=== PATIENT | male | born 1975 | race Caucasian/White ===

== ENCOUNTER 2019-02-16 06:03 | Emergency (ER) | payer MEDICAID ==
[~2019-02-16] VITALS: Ht 177.8 cm; Wt 133.8 kg
[~2019-02-16 06:03] MED LIST: ALPR1TAB2; NOR10T
[2019-02-16 06:25] VITALS: BP 175/93
[2019-02-16] MEDS ORDERED: cefTRIAXone SOD 1,000 MG VL IM ONE ×2 (07:15)
== END 2019-02-16 07:46 | disposition home or self-care (01) ==
LOC: ER 06:03
DX: S60.561A Insect bite (nonvenomous) of right hand, initial encounter (principal); I10 Essential (primary) hypertension; Z88.8 Allergy status to other drugs, medicaments and biological substances; W57.XXXA Bitten or stung by nonvenomous insect and other nonvenomous arthropods, initial encounter; Y93.89 Activity, other specified; Y92.89 Other specified places as the place of occurrence of the external cause; Y99.8 Other external cause status
CPT/HCPCS: 82962; 96372; 99283; J0696

== ENCOUNTER 2019-02-19 07:03 | Emergency (ER) | payer MEDICAID ==
[~2019-02-19] VITALS: Ht 177.8 cm; Wt 132.9 kg
[2019-02-19 07:20] VITALS: BP 156/116
[2019-02-19] MEDS ORDERED: cloNIDine HCL 0.1 MG TAB PO ONE (07:30)
[2019-02-19] MEDS ORDERED: LIDOCAINE 1% HCL (LOCAL ANESTH.) INJ 20ML MDV IJ ONE (07:45)
[2019-02-19] MEDS ORDERED: cefTRIAXone SOD 1,000 MG VL IM ONE (08:00)
== END 2019-02-19 08:34 | disposition home or self-care (01) ==
LOC: ER 07:05
DX: L02.511 Cutaneous abscess of right hand (principal); I10 Essential (primary) hypertension; F17.210 Nicotine dependence, cigarettes, uncomplicated; Z88.8 Allergy status to other drugs, medicaments and biological substances; Z79.899 Other long term (current) drug therapy
CPT/HCPCS: 10060; 87075; 96372; 99283; J0696; J2001

== ENCOUNTER 2019-07-24 13:12 | Inpatient (IN) | payer MEDICAID ==
[~2019-07-24] VITALS: Ht 177.8 cm; Wt 118.5 kg
[2019-07-24] MEDS ORDERED: SODIUM CHLORIDE 0.9% 1,000 ML IV ONE (13:29)
[2019-07-24 14:06] LABS: Albumin 4.4 g/dL (3.4-5.0); Calcium 10.3 mg/dL (8.5-10.1); Potassium 3.7 mmol/L (3.5-5.1)
[2019-07-24 14:11] LABS: BUN/Creatinine Ratio 9.6; Basophils # (auto) 0.1 10 ^3/uL (0-0.2); Basophils % (auto) 1.1 % (0.0-2.0); Bilirubin, Total 0.2 mg/dL (0.2-1.0); Eosinophils # (auto) 0.4 10 ^3/uL (0-0.8); Eosinophils % (auto) 3.3 % (0.0-7.0); Hematocrit 44.5 % (41.0-53.0); Hemoglobin 14.6 g/dL (13.5-17.5); Lymphocytes # (auto) 2.2 10 ^3/uL (0.4-5.4); Lymphocytes % (auto) 20.7 % (10.0-50.0); Mean Corpuscular Hgb Conc. 32.9 g/dL (32.0-36.0); Mean Corpuscular Volume 85.2 fL (80.0-100.0); Monocytes # (auto) 0.5 10 ^3/uL (0-1.3); Monocytes % (auto) 5.1 % (0.0-12.0); Neutrophils # (auto) 7.3 10 ^3/uL (1.6-8.6); Neutrophils % (auto) 69.8 % (37.0-80.0); Nucleated Red Blood Cells % 0.1 %; Platelet Count (auto) 442 10^3/uL (140-450); Red Blood Cells 5.22 10^6/uL (4.5-5.90); Red Cell Distribution Width 16.8 % (11.8-14.3); Total Protein 9.1 g/dL (6.4-8.2); White Blood Cell 10.5 10^3/uL (4.4-10.8)
[2019-07-24] MEDS: SODIUM CHLORIDE 0.9% 1,000 ML IV ONE ×2 (15:21→18:26)
[2019-07-24] MEDS ORDERED: PIPERACILLIN-TAZOB 3.375GM 100 ML IV ONE (16:15)
[2019-07-24] MEDS ORDERED: metroNIDAZOLE 500MG/100ML 100 ML IV ONE (16:15)
[2019-07-24] MEDS ORDERED: PANTOPRAZOLE 40 MG/10 ML VIAL INJ IV ONE (18:00)
[2019-07-24] MEDS ORDERED: ONDANSETRON HCL 4 MG/2 ML VIAL IV ONE (18:00)
[2019-07-24] MEDS ORDERED: levoFLOXacin 500MG 100 ML IV ONE (19:00)
[2019-07-24] MEDS ORDERED: ACETAMINOPHEN 500 MG TAB PO PRN (19:00)
[2019-07-24 20:00] VITALS: BP 138/91
[2019-07-24] MEDS: SODIUM CHLORIDE 0.9% 1,000 ML IV SCH (20:48)
[2019-07-24] MEDS ORDERED: NALT50TA27 PO (21:00)
[2019-07-24] MEDS ORDERED: METH5TAB2 PO (21:00)
[2019-07-24] MEDS ORDERED: QUET200T4 PO (21:00)
[2019-07-24] MEDS: FAMOTIDINE (10MG/ML) 2ML VL IV SCH (22:00)
[2019-07-24 22:14] VITALS: BP 138/81
[2019-07-24] MEDS: metroNIDAZOLE 500MG/100ML 100 ML IV SCH (22:19)
[2019-07-24] MEDS: TEMAZEPAM 15 MG CAP PO PRN (22:20)
[2019-07-25 05:00] VITALS: BP 152/85
[2019-07-25] MEDS: SODIUM CHLORIDE 0.9% 1,000 ML IV SCH ×2 (05:33→16:48)
[2019-07-25] MEDS: metroNIDAZOLE 500MG/100ML 100 ML IV SCH ×3 (05:33→22:00)
[2019-07-25] MEDS: ONDANSETRON HCL 4 MG/2 ML VIAL IV PRN ×2 (05:34→22:00)
[2019-07-25 06:25] LABS: Basophils # (auto) 0.1 10 ^3/uL (0-0.2); Basophils % (auto) 0.3 % (0.0-2.0); Eosinophils # (auto) 0 10 ^3/uL (0-0.8); Hematocrit 45.1 % (41.0-53.0); Hemoglobin 15.2 g/dL (13.5-17.5); Mean Corpuscular Hemoglobin 28.5 pg (28.0-32.0); Mean Corpuscular Hgb Conc. 33.6 g/dL (32.0-36.0); Mean Corpuscular Volume 84.7 fL (80.0-100.0); Monocytes # (auto) 0.4 10 ^3/uL (0-1.3); Monocytes % (auto) 2.4 % (0.0-12.0); Neutrophils % (auto) 91.3 % (37.0-80.0); Nucleated Red Blood Cells % 0.1 %; Platelet Count (auto) 455 10^3/uL (140-450); Red Blood Cells 5.32 10^6/uL (4.5-5.90); Red Cell Distribution Width 16.3 % (11.8-14.3); White Blood Cell 16.5 10^3/uL (4.4-10.8)
[2019-07-25 06:39] LABS: Albumin 4.2 g/dL (3.4-5.0); BUN/Creatinine Ratio 11.1; Calcium 10.3 mg/dL (8.5-10.1); Potassium 3.4 mmol/L (3.5-5.1)
[2019-07-25 06:42] LABS: Bilirubin, Total 0.4 mg/dL (0.2-1.0); Total Protein 8.7 g/dL (6.4-8.2)
[2019-07-25 09:00] VITALS: BP 106/63
[2019-07-25] MEDS: FAMOTIDINE (10MG/ML) 2ML VL IV SCH (10:00)
[2019-07-25] MEDS: ENOXAPARIN SOD 40 MG/0.4 ML SYRINGE SC SCH (10:46)
[2019-07-25 12:48] VITALS: BP 119/79
[2019-07-25] MEDS ORDERED: POTASSIUM CHL 20 Meq TABLET PO ONE (13:15)
[2019-07-25 17:00] VITALS: BP 128/77
[2019-07-25] MEDS: SUCRALFATE 1 GM TAB PO SCH ×2 (17:00→22:00)
[2019-07-25] MEDS: POTASSIUM CHL 20MEQ/100ML 100 ML IV SCH ×2 (17:07→19:34)
[2019-07-25] MEDS ORDERED: levoFLOXacin 500MG 100 ML IV SCH (21:00)
[2019-07-25 21:34] VITALS: BP 132/98
[2019-07-25] MEDS: PANTOPRAZOLE 40 MG/10 ML VIAL INJ IV SCH (22:00)
[2019-07-26] MEDS: SODIUM CHLORIDE 0.9% 1,000 ML IV SCH ×2 (02:06→16:30)
[2019-07-26] MEDS: ONDANSETRON HCL 4 MG/2 ML VIAL IV PRN ×3 (02:10→22:45)
[2019-07-26 05:00] VITALS: BP 148/93
[2019-07-26 05:03] LABS: Basophils # (auto) 0.1 10 ^3/uL (0-0.2); Basophils % (auto) 0.3 % (0.0-2.0); Eosinophils # (auto) 0 10 ^3/uL (0-0.8); Hemoglobin 15.1 g/dL (13.5-17.5); Lymphocytes # (auto) 1.3 10 ^3/uL (0.4-5.4); Lymphocytes % (auto) 5.6 % (10.0-50.0); Mean Corpuscular Hemoglobin 28.3 pg (28.0-32.0); Mean Corpuscular Hgb Conc. 32.8 g/dL (32.0-36.0); Mean Corpuscular Volume 86.2 fL (80.0-100.0); Monocytes % (auto) 4.5 % (0.0-12.0); Neutrophils # (auto) 20.4 10 ^3/uL (1.6-8.6); Neutrophils % (auto) 89.6 % (37.0-80.0); Platelet Count (auto) 445 10^3/uL (140-450); Red Blood Cells 5.33 10^6/uL (4.5-5.90); Red Cell Distribution Width 16.8 % (11.8-14.3); White Blood Cell 22.8 10^3/uL (4.4-10.8)
[2019-07-26] MEDS: metroNIDAZOLE 500MG/100ML 100 ML IV SCH ×3 (05:04→21:46)
[2019-07-26] MEDS: SUCRALFATE 1 GM TAB PO SCH ×4 (05:04→21:46)
[2019-07-26 05:20] LABS: BUN/Creatinine Ratio 17.8; Calcium 9.6 mg/dL (8.5-10.1); Magnesium 2.6 mg/dL (1.6-2.6); Potassium 3.6 mmol/L (3.5-5.1)
[2019-07-26 08:54] VITALS: BP 145/77
[2019-07-26] MEDS: ENOXAPARIN SOD 40 MG/0.4 ML SYRINGE SC SCH ×2 (10:20→11:00)
[2019-07-26] MEDS ORDERED: SODIUM CHLORIDE 0.9% 1,000 ML IV ONE (11:00)
[2019-07-26] MEDS: PANTOPRAZOLE 40 MG/10 ML VIAL INJ IV SCH (11:00)
[2019-07-26 11:20] LABS: Albumin 4.2 g/dL (3.4-5.0); Bilirubin, Direct 0.2 mg/dL (0-0.2)
[2019-07-26 11:23] LABS: Bilirubin, Total 0.5 mg/dL (0.2-1.0); Total Protein 8.7 g/dL (6.4-8.2)
[2019-07-26 12:29] VITALS: BP 128/82
[2019-07-26] MEDS ORDERED: LORazepam 2MG/ML-1ML VIAL IV PRN (13:15)
[2019-07-26] MEDS ORDERED: MANNITOL FTV 25% 12.5 GM/50 ML 50 ML IV ONE (13:15)
[2019-07-26] MEDS: HYDROmorphone HCL 2 MG/ML VL IV PRN ×2 (15:56→22:46)
[2019-07-26 16:55] VITALS: BP 114/85
[2019-07-26] MEDS ORDERED: PIPERACILLIN-TAZOB 2.25GM 50 ML IV SCH (18:00)
[2019-07-26] MEDS: TAMSULOSIN HYDROCHLORIDE 0.4 MG CAP PO SCH (19:50)
[2019-07-26] MEDS: PIPERACILLIN-TAZOB 2.25GM 50 ML IV SCH ×2 (19:50→23:52)
[2019-07-26 21:00] VITALS: BP 164/90
[2019-07-26] MEDS ORDERED: levoFLOXacin 250MG 50 ML IV SCH (21:00)
[2019-07-26] MEDS: traMADol HCL 50 MG TAB PO PRN (21:47)
[2019-07-26 22:00] VITALS: BP 135/76
[2019-07-26 22:03] LABS: Urine WBC None Seen /hpf (0 - 3)
[2019-07-26 22:20] LABS: Urine Bacteria NONE SEEN /hpf (None Seen); Urine Blood Negative /uL (Negative); Urine Specific Gravity 1.027 (1.001-1.035)
[2019-07-26 22:27] LABS: Protein, Urine 18.6 mg/dL (0.0-11.9)
[2019-07-27 04:30] VITALS: BP 138/78
[2019-07-27] MEDS: ONDANSETRON HCL 4 MG/2 ML VIAL IV PRN (04:49)
[2019-07-27] MEDS: metroNIDAZOLE 500MG/100ML 100 ML IV SCH ×3 (04:50→22:21)
[2019-07-27] MEDS: HYDROmorphone HCL 2 MG/ML VL IV PRN ×4 (04:50→23:59)
[2019-07-27] MEDS: SODIUM CHLORIDE 0.9% 1,000 ML IV SCH ×2 (05:38→19:10)
[2019-07-27] MEDS: PIPERACILLIN-TAZOB 2.25GM 50 ML IV SCH ×4 (05:42→23:59)
[2019-07-27] MEDS: SUCRALFATE 1 GM TAB PO SCH ×4 (05:43→22:21)
[2019-07-27 08:42] VITALS: BP 125/68
[2019-07-27] MEDS: PANTOPRAZOLE 40 MG/10 ML VIAL INJ IV SCH ×2 (10:20→22:21)
[2019-07-27 10:29] LABS: Basophils # (auto) 0.1 10 ^3/uL (0-0.2); Basophils % (auto) 0.5 % (0.0-2.0); Eosinophils # (auto) 0.1 10 ^3/uL (0-0.8); Eosinophils % (auto) 0.5 % (0.0-7.0); Hematocrit 39.2 % (41.0-53.0); Hemoglobin 12.5 g/dL (13.5-17.5); Lymphocytes # (auto) 2.5 10 ^3/uL (0.4-5.4); Lymphocytes % (auto) 15.9 % (10.0-50.0); Mean Corpuscular Hemoglobin 27.6 pg (28.0-32.0); Mean Corpuscular Hgb Conc. 31.8 g/dL (32.0-36.0); Mean Corpuscular Volume 86.9 fL (80.0-100.0); Neutrophils # (auto) 12.3 10 ^3/uL (1.6-8.6); Neutrophils % (auto) 77.1 % (37.0-80.0); Nucleated Red Blood Cells % 0.1 %; Platelet Count (auto) 367 10^3/uL (140-450); Red Blood Cells 4.52 10^6/uL (4.5-5.90); Red Cell Distribution Width 17.1 % (11.8-14.3); White Blood Cell 15.9 10^3/uL (4.4-10.8)
[2019-07-27 12:31] VITALS: BP 113/67
[2019-07-27] MEDS ORDERED: MANNITOL FTV 25% 12.5 GM/50 ML 50 ML IV ONE (13:30)
[2019-07-27 13:40] LABS: INR 1.28 (0.9-1.15); Partial Thromboplastin Time 28.3 sec (23.64-32.05)
[2019-07-27 15:02] LABS: Albumin 3.5 g/dL (3.4-5.0); Calcium 8.4 mg/dL (8.5-10.1); Potassium 3.7 mmol/L (3.5-5.1)
[2019-07-27 15:05] LABS: BUN/Creatinine Ratio 20.6; Bilirubin, Total 0.6 mg/dL (0.2-1.0); Total Protein 7.3 g/dL (6.4-8.2)
[2019-07-27 17:00] VITALS: BP 126/74
[2019-07-27] MEDS: TAMSULOSIN HYDROCHLORIDE 0.4 MG CAP PO SCH (18:40)
[2019-07-27 22:00] VITALS: BP 137/74
[2019-07-28 05:00] VITALS: BP 138/78
[2019-07-28 05:03] LABS: Basophils # (auto) 0.1 10 ^3/uL (0-0.2); Basophils % (auto) 0.9 % (0.0-2.0); Eosinophils # (auto) 0.1 10 ^3/uL (0-0.8); Eosinophils % (auto) 0.8 % (0.0-7.0); Hematocrit 39.5 % (41.0-53.0); Hemoglobin 12.7 g/dL (13.5-17.5); Lymphocytes # (auto) 2.5 10 ^3/uL (0.4-5.4); Lymphocytes % (auto) 20.9 % (10.0-50.0); Mean Corpuscular Hemoglobin 27.7 pg (28.0-32.0); Mean Corpuscular Hgb Conc. 32.1 g/dL (32.0-36.0); Mean Corpuscular Volume 86.2 fL (80.0-100.0); Monocytes # (auto) 0.6 10 ^3/uL (0-1.3); Monocytes % (auto) 5.3 % (0.0-12.0); Neutrophils # (auto) 8.7 10 ^3/uL (1.6-8.6); Neutrophils % (auto) 72.1 % (37.0-80.0); Nucleated Red Blood Cells % 0.1 %; Platelet Count (auto) 373 10^3/uL (140-450); Red Blood Cells 4.58 10^6/uL (4.5-5.90); Red Cell Distribution Width 15.9 % (11.8-14.3); White Blood Cell 12.1 10^3/uL (4.4-10.8)
[2019-07-28 05:21] LABS: Albumin 3.3 g/dL (3.4-5.0); Calcium 8.3 mg/dL (8.5-10.1); Potassium 3.4 mmol/L (3.5-5.1)
[2019-07-28 05:25] LABS: BUN/Creatinine Ratio 16.7; Bilirubin, Total 0.5 mg/dL (0.2-1.0); Total Protein 6.9 g/dL (6.4-8.2)
[2019-07-28] MEDS: metroNIDAZOLE 500MG/100ML 100 ML IV SCH ×3 (05:43→22:02)
[2019-07-28] MEDS: HYDROmorphone HCL 2 MG/ML VL IV PRN ×6 (06:01→21:17)
[2019-07-28] MEDS: PIPERACILLIN-TAZOB 2.25GM 50 ML IV SCH (06:49)
[2019-07-28] MEDS: SODIUM CHLORIDE 0.9% 1,000 ML IV SCH (08:30)
[2019-07-28 08:45] VITALS: BP 135/78
[2019-07-28] MEDS ORDERED: ceFAZolin 1GM/50ML 50 ML IV ONE (09:42)
[2019-07-28] MEDS: ENOXAPARIN SOD 40 MG/0.4 ML SYRINGE SC SCH (09:50)
[2019-07-28] MEDS ORDERED: LIDOCAINE 1% (LOCAL ANESTH.) PF 5ml SDV ONE (10:32)
[2019-07-28] MEDS ORDERED: SUCCINYLCHOLINE CHLORIDE 20 MG/ML 10ML VIAL IV ONE (10:32)
[2019-07-28] MEDS ORDERED: METOCLOPRAMIDE HCL 5MG/ml INJ 2ml VIAL ONE (10:37)
[2019-07-28] MEDS ORDERED: MIDAZOLAM HCL 1MG/1ML-2 ML VIAL ONE (10:37)
[2019-07-28] MEDS ORDERED: PROPOFOL 10 MG/ML 20 ML IV ONE (10:39)
[2019-07-28] MEDS ORDERED: fentaNYL CITRATE 100 MCG/2 ML VL ONE (10:54)
[2019-07-28] MEDS ORDERED: ONDANSETRON HCL 4 MG/2 ML VIAL IV PRN (11:00)
[2019-07-28] MEDS ORDERED: hydrALAZINE HCL 20 MG/ML VL IV PRN (11:00)
[2019-07-28] MEDS ORDERED: HYDROmorphone HCL 2 MG/ML VL IV PRN (11:00)
[2019-07-28] MEDS ORDERED: NALOXONE HCL 0.4 MG/ML VIAL IV PRN (11:00)
[2019-07-28] MEDS ORDERED: ROCURONIUM 10MG/ML 10ML VIAL IV ONE (11:08)
[2019-07-28] MEDS ORDERED: NEOSTIGMINE 1 MG/ML INJ (10mg/10ML VIAL) ONE (11:24)
[2019-07-28] MEDS ORDERED: GLYCOPYRROLATE 0.2 MG/ML 1ML VIAL ONE (11:24)
[2019-07-28] MEDS: SUCRALFATE 1 GM TAB PO SCH ×3 (11:30→22:02)
[2019-07-28] MEDS: PIPERACILLIN-TAZOB 3.375GM 100 ML IV SCH ×2 (12:00→18:07)
[2019-07-28] MEDS ORDERED: POTASSIUM CHL 20 Meq TABLET PO ONE (14:15)
[2019-07-28] MEDS ORDERED: SODIUM CHLORIDE 0.9% 1,000 ML IV SCH (15:45)
[2019-07-28 16:54] VITALS: BP 131/73
[2019-07-28] MEDS: traMADol HCL 50 MG TAB PO PRN (17:15)
[2019-07-28 20:53] VITALS: BP 127/55
[2019-07-28] MEDS: ONDANSETRON HCL 4 MG/2 ML VIAL IV PRN (21:17)
[2019-07-28] MEDS: PANTOPRAZOLE 40 MG/10 ML VIAL INJ IV SCH (22:02)
[2019-07-28] MEDS: TEMAZEPAM 15 MG CAP PO PRN (22:03)
[2019-07-29] MEDS: PIPERACILLIN-TAZOB 3.375GM 100 ML IV SCH ×4 (00:37→18:02)
[2019-07-29] MEDS: traMADol HCL 50 MG TAB PO PRN (00:51)
[2019-07-29] MEDS: HYDROmorphone HCL 2 MG/ML VL IV PRN ×4 (03:10→21:30)
[2019-07-29 04:49] VITALS: BP 134/74
[2019-07-29] MEDS: metroNIDAZOLE 500MG/100ML 100 ML IV SCH ×3 (05:20→21:29)
[2019-07-29] MEDS: SUCRALFATE 1 GM TAB PO SCH ×4 (06:50→21:29)
[2019-07-29 08:00] VITALS: BP 142/82
[2019-07-29 09:00] VITALS: BP 142/82
[2019-07-29 09:51] LABS: Basophils # (auto) 0.1 10 ^3/uL (0-0.2); Basophils % (auto) 0.5 % (0.0-2.0); Eosinophils # (auto) 0.1 10 ^3/uL (0-0.8); Hematocrit 38.1 % (41.0-53.0); Hemoglobin 12.2 g/dL (13.5-17.5); Lymphocytes # (auto) 1.7 10 ^3/uL (0.4-5.4); Lymphocytes % (auto) 17.4 % (10.0-50.0); Mean Corpuscular Hemoglobin 27.5 pg (28.0-32.0); Mean Corpuscular Volume 85.9 fL (80.0-100.0); Monocytes # (auto) 0.5 10 ^3/uL (0-1.3); Monocytes % (auto) 5.3 % (0.0-12.0); Neutrophils # (auto) 7.4 10 ^3/uL (1.6-8.6); Neutrophils % (auto) 75.8 % (37.0-80.0); Platelet Count (auto) 344 10^3/uL (140-450); Red Blood Cells 4.43 10^6/uL (4.5-5.90); Red Cell Distribution Width 15.9 % (11.8-14.3); White Blood Cell 9.7 10^3/uL (4.4-10.8)
[2019-07-29] MEDS: PANTOPRAZOLE 40 MG/10 ML VIAL INJ IV SCH ×2 (10:00→21:29)
[2019-07-29] MEDS: ENOXAPARIN SOD 40 MG/0.4 ML SYRINGE SC SCH (10:00)
[2019-07-29 10:05] LABS: BUN/Creatinine Ratio 10.3; Calcium 8.2 mg/dL (8.5-10.1); Magnesium 2.3 mg/dL (1.6-2.6); Potassium 3.5 mmol/L (3.5-5.1)
[2019-07-29 10:08] LABS: Bilirubin, Total 0.5 mg/dL (0.2-1.0); Total Protein 6.6 g/dL (6.4-8.2)
[2019-07-29] MEDS ORDERED: POTASSIUM CHL 20 Meq TABLET PO ONE (10:45)
[2019-07-29] MEDS: SODIUM CHLORIDE 0.9% 1,000 ML IV SCH (12:02)
[2019-07-29] MEDS ORDERED: LIDOCAINE 1% (LOCAL ANESTH.) PF 5ml SDV ONE (12:33)
[2019-07-29] MEDS ORDERED: SUCCINYLCHOLINE CHLORIDE 20 MG/ML 10ML VIAL IV ONE (12:33)
[2019-07-29] MEDS ORDERED: MIDAZOLAM HCL 1MG/1ML-2 ML VIAL ONE (12:37)
[2019-07-29] MEDS ORDERED: METOCLOPRAMIDE HCL 5MG/ml INJ 2ml VIAL ONE (12:37)
[2019-07-29] MEDS ORDERED: ETOMIDATE (2MG/ML) 20ML VIAL IV ONE (12:40)
[2019-07-29] MEDS ORDERED: ROCURONIUM 10MG/ML 10ML VIAL IV ONE (12:43)
[2019-07-29] MEDS ORDERED: fentaNYL CITRATE 100 MCG/2 ML VL ONE (12:51)
[2019-07-29] MEDS ORDERED: HYDROmorphone HCL 2 MG/ML VL IV PRN ×2 (13:15)
[2019-07-29] MEDS ORDERED: NALOXONE HCL 0.4 MG/ML VIAL IV PRN (13:15)
[2019-07-29] MEDS ORDERED: ONDANSETRON HCL 4 MG/2 ML VIAL IV PRN (13:15)
[2019-07-29] MEDS ORDERED: hydrALAZINE HCL 20 MG/ML VL IV PRN (13:15)
[2019-07-29] MEDS ORDERED: NEOSTIGMINE 1 MG/ML INJ (10mg/10ML VIAL) ONE (13:25)
[2019-07-29] MEDS ORDERED: GLYCOPYRROLATE 0.2 MG/ML 1ML VIAL ONE (13:25)
[2019-07-29] MEDS: TAMSULOSIN HYDROCHLORIDE 0.4 MG CAP PO SCH (18:03)
[2019-07-29] MEDS: HYDROcodone-ACET 5/325MG TAB PO PRN (19:09)
[2019-07-29 21:32] VITALS: BP 145/94
[2019-07-30] MEDS: PIPERACILLIN-TAZOB 3.375GM 100 ML IV SCH ×4 (00:42→17:57)
[2019-07-30] MEDS: SODIUM CHLORIDE 0.9% 1,000 ML IV SCH (03:11)
[2019-07-30] MEDS: HYDROmorphone HCL 2 MG/ML VL IV PRN (03:11)
[2019-07-30 05:00] VITALS: BP 157/84
[2019-07-30] MEDS: metroNIDAZOLE 500MG/100ML 100 ML IV SCH ×3 (05:48→22:00)
[2019-07-30] MEDS: SUCRALFATE 1 GM TAB PO SCH ×4 (05:49→22:00)
[2019-07-30] MEDS: HYDROcodone-ACET 5/325MG TAB PO PRN ×2 (06:56→17:57)
[2019-07-30 09:00] VITALS: BP 137/82
[2019-07-30] MEDS: PANTOPRAZOLE 40 MG/10 ML VIAL INJ IV SCH ×2 (09:40→22:00)
[2019-07-30] MEDS: ENOXAPARIN SOD 40 MG/0.4 ML SYRINGE SC SCH (09:41)
[2019-07-30 13:00] VITALS: BP 139/69
[2019-07-30] MEDS ORDERED: MORPHINE SULF INJ 2 MG/ML SYRINGE 1ML IV ONE (14:30)
[2019-07-30 17:00] VITALS: BP_SYST 124; BP_SYST 131; BP_DIAS 60; BP_DIAS 79
[2019-07-30] MEDS: TAMSULOSIN HYDROCHLORIDE 0.4 MG CAP PO SCH (17:57)
[2019-07-30 22:00] VITALS: BP 124/83
[2019-07-30] MEDS: TEMAZEPAM 15 MG CAP PO PRN (22:15)
[2019-07-31] MEDS: HYDROcodone-ACET 5/325MG TAB PO PRN (02:21)
[2019-07-31 05:41] VITALS: BP 152/86
[2019-07-31] MEDS: PIPERACILLIN-TAZOB 3.375GM 100 ML IV SCH ×2 (06:00)
[2019-07-31] MEDS: metroNIDAZOLE 500MG/100ML 100 ML IV SCH (06:00)
[2019-07-31] MEDS: SUCRALFATE 1 GM TAB PO SCH (07:00)
[2019-07-31 07:04] LABS: Basophils # (auto) 0.1 10 ^3/uL (0-0.2); Basophils % (auto) 0.8 % (0.0-2.0); Eosinophils # (auto) 0.3 10 ^3/uL (0-0.8); Eosinophils % (auto) 3.2 % (0.0-7.0); Hematocrit 36.1 % (41.0-53.0); Hemoglobin 11.8 g/dL (13.5-17.5); Lymphocytes # (auto) 1.8 10 ^3/uL (0.4-5.4); Lymphocytes % (auto) 16.6 % (10.0-50.0); Mean Corpuscular Hgb Conc. 32.8 g/dL (32.0-36.0); Mean Corpuscular Volume 85.3 fL (80.0-100.0); Monocytes # (auto) 0.6 10 ^3/uL (0-1.3); Monocytes % (auto) 5.1 % (0.0-12.0); Neutrophils # (auto) 8.1 10 ^3/uL (1.6-8.6); Neutrophils % (auto) 74.3 % (37.0-80.0); Platelet Count (auto) 387 10^3/uL (140-450); Red Blood Cells 4.23 10^6/uL (4.5-5.90); Red Cell Distribution Width 16.2 % (11.8-14.3); White Blood Cell 10.9 10^3/uL (4.4-10.8)
[2019-07-31 07:17] LABS: Potassium 3.5 mmol/L (3.5-5.1)
[2019-07-31 07:20] LABS: BUN/Creatinine Ratio 9.9; Calcium 8.5 mg/dL (8.5-10.1)
[2019-07-31 07:23] LABS: Albumin 2.9 g/dL (3.4-5.0); Bilirubin, Total 0.3 mg/dL (0.2-1.0); Total Protein 6.5 g/dL (6.4-8.2)
[2019-07-31 09:00] VITALS: BP 143/67
[2019-07-31] MEDS: PANTOPRAZOLE 40 MG/10 ML VIAL INJ IV SCH (10:00)
[2019-07-31] MEDS: ENOXAPARIN SOD 40 MG/0.4 ML SYRINGE SC SCH (10:00)
== END 2019-07-31 11:22 | disposition home or self-care (01) | DRG 710 ==
LOC: EDBD 13:12 → ER 13:12 → CENTRAL 13:13
PROVIDERS: ADMIT Internal Medicine; ATTEND Internal Medicine
PROC: 0FT44ZZ Resection of Gallbladder, Percutaneous Endoscopic Approach (ICD-10-PCS; 2019-07-28)
PROC: 3E013GC Introduction of Other Therapeutic Substance into Subcutaneous Tissue, Percutaneous Approach (ICD-10-PCS; principal; 2019-07-28 10:36)
PROC: 0TF6XZZ Fragmentation in Right Ureter, External Approach (ICD-10-PCS; 2019-07-29)
DX: A41.9 Sepsis, unspecified organism (principal); N17.0 Acute kidney failure with tubular necrosis; K80.00 Calculus of gallbladder with acute cholecystitis without obstruction; R56.9 Unspecified convulsions; E66.01 Morbid (severe) obesity due to excess calories; I10 Essential (primary) hypertension; K52.9 Noninfective gastroenteritis and colitis, unspecified; E78.5 Hyperlipidemia, unspecified; E87.6 Hypokalemia; F31.9 Bipolar disorder, unspecified; N13.9 Obstructive and reflux uropathy, unspecified; N20.2 Calculus of kidney with calculus of ureter; F41.9 Anxiety disorder, unspecified; K21.9 Gastro-esophageal reflux disease without esophagitis; F17.210 Nicotine dependence, cigarettes, uncomplicated; Z87.442 Personal history of urinary calculi; Z82.49 Family history of ischemic heart disease and other diseases of the circulatory system; Z87.19 Personal history of other diseases of the digestive system; K85.90 Acute pancreatitis without necrosis or infection, unspecified
CPT/HCPCS: 36415; 71045; 74018; 74021; 74176; 76705; 76775; 78226; 80048; 80053; 80076; 81001; 82150; 82570; 83605; 83690; 83735; 84156; 84300; 85025; 85610; 85730; 86850; 86900; 86901; 87040; 87045; 87081; 87086; 87427; 87493; 96361; 96365; 96367; 96375; 97110; 97116; 97530; 99291; C9113; G0378; J0330; J0690; J1956; J2250; J2405; J2543; J2704; J3480; J3490

== ENCOUNTER 2019-08-09 09:38 | Emergency (ER) | payer MEDICAID ==
[~2019-08-09] VITALS: Ht 177.8 cm; Wt 122.5 kg
[~2019-08-09 09:38] MED LIST changes: -ALPR1TAB2; +METH5TAB2 PO; +NALT50TA27 PO; -NOR10T; +QUET200T4 PO
[2019-08-09 10:07] VITALS: BP 172/90
== END 2019-08-09 11:05 | disposition home or self-care (01) ==
LOC: ER 09:38
DX: R10.9 Unspecified abdominal pain (principal); F17.210 Nicotine dependence, cigarettes, uncomplicated; Z88.8 Allergy status to other drugs, medicaments and biological substances; Z79.899 Other long term (current) drug therapy
CPT/HCPCS: 74176

== ENCOUNTER 2019-08-14 18:43 | Inpatient (IN) | payer MEDICAID ==
[~2019-08-14] VITALS: Ht 180.3 cm; Wt 123.0 kg
[2019-08-14] MEDS ORDERED: SODIUM CHLORIDE 0.9% 1,000 ML IV ONE (20:45)
[2019-08-14 21:06] LABS: Basophils # (auto) 0.1 10 ^3/uL (0-0.2); Basophils % (auto) 0.7 % (0.0-2.0); Eosinophils # (auto) 0.1 10 ^3/uL (0-0.8); Eosinophils % (auto) 1.1 % (0.0-7.0); Hematocrit 36.7 % (41.0-53.0); Lymphocytes # (auto) 1.4 10 ^3/uL (0.4-5.4); Lymphocytes % (auto) 10.8 % (10.0-50.0); Mean Corpuscular Hemoglobin 27.8 pg (28.0-32.0); Mean Corpuscular Hgb Conc. 32.8 g/dL (32.0-36.0); Mean Corpuscular Volume 84.8 fL (80.0-100.0); Monocytes # (auto) 0.5 10 ^3/uL (0-1.3); Monocytes % (auto) 4.2 % (0.0-12.0); Neutrophils # (auto) 10.6 10 ^3/uL (1.6-8.6); Neutrophils % (auto) 83.2 % (37.0-80.0); Platelet Count (auto) 396 10^3/uL (140-450); Red Blood Cells 4.33 10^6/uL (4.5-5.90); Red Cell Distribution Width 16.4 % (11.8-14.3); White Blood Cell 12.8 10^3/uL (4.4-10.8)
[2019-08-14] MEDS ORDERED: ONDANSETRON HCL 4 MG/2 ML VIAL ONE (21:06)
[2019-08-14] MEDS ORDERED: ONDANSETRON HCL 4 MG/2 ML VIAL IV ONE ×2 (21:15→22:45)
[2019-08-14 21:23] LABS: Albumin 3.4 g/dL (3.4-5.0); Calcium 9.7 mg/dL (8.5-10.1); Potassium 3.5 mmol/L (3.5-5.1)
[2019-08-14 21:26] LABS: Bilirubin, Total 0.2 mg/dL (0.2-1.0); Total Protein 7.7 g/dL (6.4-8.2)
[2019-08-14] MEDS ORDERED: LORazepam 2MG/ML-1ML VIAL ONE (21:28)
[2019-08-14] MEDS ORDERED: diphenhdrAMINE HCL 50 MG/1 ML VL ONE (21:28)
[2019-08-14] MEDS ORDERED: HALOPERIDOL LACTATE 5 MG/ML INJ VIAL ONE (21:28)
[2019-08-14] MEDS ORDERED: HALOPERIDOL LACTATE 5 MG/ML INJ VIAL IM ONE (21:30)
[2019-08-14] MEDS ORDERED: LORazepam 2MG/ML-1ML VIAL IM ONE (21:30)
[2019-08-14] MEDS ORDERED: diphenhdrAMINE HCL 50 MG/1 ML VL IM ONE (21:30)
[2019-08-14 22:36] LABS: Lactic Acid w/Reflex 3.6 mmol/L (0.4-2.0)
[2019-08-14] MEDS ORDERED: LORazepam 2MG/ML-1ML VIAL IV ONE (22:45)
[2019-08-15 00:06] LABS: Urine Bacteria NONE SEEN /hpf (None Seen); Urine Blood Negative /uL (Negative); Urine Specific Gravity 1.012 (1.001-1.035); Urine WBC <1 /hpf (0 - 3)
[2019-08-15 00:22] LABS: Alcohol, Urine < 3.0 mg/dL (0-5); Amphetamine Screen, Urine NEGATIVE (NEGATIVE); Barbiturate Scree,Urine NEGATIVE (NEGATIVE); Benzodiazephine Screen, Urine POSITIVE (NEGATIVE); Cannabinoid Screen, Urine NEGATIVE (NEGATIVE); Cocaine Screen, Urine NEGATIVE (NEGATIVE); Opiate Scree,Urine NEGATIVE (NEGATIVE); Phencyclidine Screen, Urine NEGATIVE (NEGATIVE)
[2019-08-15] MEDS ORDERED: DOCUSATE SOD 100 MG CAP PO PRN (04:00)
[2019-08-15] MEDS ORDERED: LORazepam 0.5 MG TAB PO PRN (04:00)
[2019-08-15] MEDS ORDERED: ACETAMINOPHEN 325 MG TAB PO PRN (04:00)
[2019-08-15] MEDS ORDERED: HYDROcodone-ACET 5/325MG TAB PO PRN (04:00)
[2019-08-15] MEDS: SODIUM CHLORIDE 0.9% 1,000 ML IV SCH ×2 (04:20→14:01)
[2019-08-15] MEDS: metroNIDAZOLE 500MG/100ML 100 ML IV SCH ×4 (04:20→17:44)
[2019-08-15 06:37] LABS: Basophils # (auto) 0.1 10 ^3/uL (0-0.2); Basophils % (auto) 0.8 % (0.0-2.0); Eosinophils # (auto) 0 10 ^3/uL (0-0.8); Hematocrit 36.8 % (41.0-53.0); Hemoglobin 12.2 g/dL (13.5-17.5); Lymphocytes # (auto) 0.8 10 ^3/uL (0.4-5.4); Lymphocytes % (auto) 5.7 % (10.0-50.0); Mean Corpuscular Hgb Conc. 33.1 g/dL (32.0-36.0); Mean Corpuscular Volume 84.7 fL (80.0-100.0); Monocytes # (auto) 0.3 10 ^3/uL (0-1.3); Monocytes % (auto) 1.9 % (0.0-12.0); Neutrophils # (auto) 13.4 10 ^3/uL (1.6-8.6); Neutrophils % (auto) 91.6 % (37.0-80.0); Platelet Count (auto) 393 10^3/uL (140-450); Red Blood Cells 4.34 10^6/uL (4.5-5.90); Red Cell Distribution Width 16.9 % (11.8-14.3); White Blood Cell 14.6 10^3/uL (4.4-10.8)
[2019-08-15 07:00] LABS: Potassium 3.5 mmol/L (3.5-5.1)
[2019-08-15 07:07] LABS: BUN/Creatinine Ratio 11.8; Calcium 8.9 mg/dL (8.5-10.1)
[2019-08-15] MEDS: ONDANSETRON HCL 4 MG/2 ML VIAL IV PRN ×3 (12:36→22:28)
[2019-08-15] MEDS ORDERED: cefTRIAXone 1GM/50ML D5W 50 ML IV ONE (13:45)
[2019-08-15] MEDS ORDERED: D5W/SOD CHLO 0.9% 1,000 ML IV SCH (15:30)
[2019-08-15] MEDS: MORPHINE SULFATE 4 MG/ML SYR/VIAL IV PRN ×3 (15:44→22:28)
[2019-08-15 16:18] VITALS: BP 121/66
[2019-08-15] MEDS: SUCRALFATE 1 GM/10 ML ORAL SUSP PO SCH ×2 (17:44→21:50)
[2019-08-15] MEDS: cefTRIAXone 1GM/50ML D5W 50 ML IV SCH (21:08)
[2019-08-15] MEDS: PANTOPRAZOLE 40 MG TAB PO SCH (21:50)
[2019-08-15 22:00] VITALS: BP 142/75
[2019-08-16] MEDS: metroNIDAZOLE 500MG/100ML 100 ML IV SCH ×4 (00:24→17:47)
[2019-08-16] MEDS: MORPHINE SULFATE 4 MG/ML SYR/VIAL IV PRN ×5 (02:28→19:54)
[2019-08-16] MEDS: ONDANSETRON HCL 4 MG/2 ML VIAL IV PRN ×5 (02:29→19:54)
[2019-08-16 05:00] VITALS: BP 135/86
[2019-08-16] MEDS: SUCRALFATE 1 GM/10 ML ORAL SUSP PO SCH ×4 (06:38→22:18)
[2019-08-16 09:00] VITALS: BP 154/88
[2019-08-16] MEDS: PANTOPRAZOLE 40 MG TAB PO SCH ×2 (09:58→22:18)
[2019-08-16] MEDS: cefTRIAXone 1GM/50ML D5W 50 ML IV SCH ×2 (09:59→22:18)
[2019-08-16 13:00] VITALS: BP 158/90
[2019-08-16 13:42] LABS: Basophils # (auto) 0.1 10 ^3/uL (0-0.2); Basophils % (auto) 0.5 % (0.0-2.0); Eosinophils # (auto) 0 10 ^3/uL (0-0.8); Eosinophils % (auto) 0.2 % (0.0-7.0); Hemoglobin 11.9 g/dL (13.5-17.5); Lymphocytes # (auto) 1.9 10 ^3/uL (0.4-5.4); Lymphocytes % (auto) 16.1 % (10.0-50.0); Mean Corpuscular Hemoglobin 27.3 pg (28.0-32.0); Mean Corpuscular Hgb Conc. 31.3 g/dL (32.0-36.0); Mean Corpuscular Volume 87.2 fL (80.0-100.0); Monocytes # (auto) 0.7 10 ^3/uL (0-1.3); Monocytes % (auto) 5.8 % (0.0-12.0); Neutrophils % (auto) 77.4 % (37.0-80.0); Nucleated Red Blood Cells % 0.1 %; Platelet Count (auto) 432 10^3/uL (140-450); Red Blood Cells 4.35 10^6/uL (4.5-5.90); Red Cell Distribution Width 16.9 % (11.8-14.3); White Blood Cell 11.7 10^3/uL (4.4-10.8)
[2019-08-16 14:01] LABS: Albumin 2.9 g/dL (3.4-5.0); Calcium 8.6 mg/dL (8.5-10.1); Potassium 3.5 mmol/L (3.5-5.1)
[2019-08-16 14:05] LABS: BUN/Creatinine Ratio 12.5; Bilirubin, Total 0.3 mg/dL (0.2-1.0); Total Protein 7.3 g/dL (6.4-8.2)
[2019-08-16 16:58] VITALS: BP 144/79
[2019-08-16 22:00] VITALS: BP 143/83
[2019-08-17] MEDS: metroNIDAZOLE 500MG/100ML 100 ML IV SCH ×4 (00:35→18:00)
[2019-08-17] MEDS: ONDANSETRON HCL 4 MG/2 ML VIAL IV PRN ×5 (01:00→20:09)
[2019-08-17] MEDS: MORPHINE SULFATE 4 MG/ML SYR/VIAL IV PRN ×5 (01:00→20:09)
[2019-08-17 05:00] VITALS: BP 139/76
[2019-08-17] MEDS: SUCRALFATE 1 GM/10 ML ORAL SUSP PO SCH ×4 (07:30→21:15)
[2019-08-17 09:00] VITALS: BP 146/87
[2019-08-17] MEDS: PANTOPRAZOLE 40 MG TAB PO SCH ×2 (09:31→21:15)
[2019-08-17] MEDS: cefTRIAXone 1GM/50ML D5W 50 ML IV SCH ×2 (09:31→21:15)
[2019-08-17 10:48] LABS: Basophils # (auto) 0.1 10 ^3/uL (0-0.2); Basophils % (auto) 1.3 % (0.0-2.0); Eosinophils # (auto) 0.3 10 ^3/uL (0-0.8); Eosinophils % (auto) 2.9 % (0.0-7.0); Hematocrit 35.7 % (41.0-53.0); Hemoglobin 11.5 g/dL (13.5-17.5); Lymphocytes # (auto) 2.5 10 ^3/uL (0.4-5.4); Lymphocytes % (auto) 24.3 % (10.0-50.0); Mean Corpuscular Hemoglobin 27.7 pg (28.0-32.0); Mean Corpuscular Hgb Conc. 32.2 g/dL (32.0-36.0); Monocytes # (auto) 0.6 10 ^3/uL (0-1.3); Monocytes % (auto) 5.8 % (0.0-12.0); Neutrophils # (auto) 6.8 10 ^3/uL (1.6-8.6); Neutrophils % (auto) 65.7 % (37.0-80.0); Nucleated Red Blood Cells % 0.1 %; Platelet Count (auto) 390 10^3/uL (140-450); Red Blood Cells 4.15 10^6/uL (4.5-5.90); Red Cell Distribution Width 16.7 % (11.8-14.3); White Blood Cell 10.3 10^3/uL (4.4-10.8)
[2019-08-17 11:25] LABS: Potassium 3.5 mmol/L (3.5-5.1)
[2019-08-17 11:31] LABS: Albumin 2.8 g/dL (3.4-5.0); BUN/Creatinine Ratio 10.5; Bilirubin, Total 0.2 mg/dL (0.2-1.0); Calcium 8.1 mg/dL (8.5-10.1); Total Protein 6.6 g/dL (6.4-8.2)
[2019-08-17 13:00] VITALS: BP 161/94
[2019-08-17 17:00] VITALS: BP 157/84
[2019-08-17 22:00] VITALS: BP 151/84
[2019-08-18] MEDS: ONDANSETRON HCL 4 MG/2 ML VIAL IV PRN ×2 (00:50→05:15)
[2019-08-18] MEDS: metroNIDAZOLE 500MG/100ML 100 ML IV SCH ×4 (00:50→18:00)
[2019-08-18] MEDS: MORPHINE SULFATE 4 MG/ML SYR/VIAL IV PRN ×3 (00:51→09:29)
[2019-08-18] MEDS: SUCRALFATE 1 GM/10 ML ORAL SUSP PO SCH ×3 (05:20→17:00)
[2019-08-18 05:57] VITALS: BP 125/88
[2019-08-18 07:44] LABS: Basophils # (auto) 0.1 10 ^3/uL (0-0.2); Eosinophils # (auto) 0.4 10 ^3/uL (0-0.8); Eosinophils % (auto) 3.9 % (0.0-7.0); Hematocrit 37.5 % (41.0-53.0); Hemoglobin 12.2 g/dL (13.5-17.5); Lymphocytes # (auto) 1.7 10 ^3/uL (0.4-5.4); Lymphocytes % (auto) 17.3 % (10.0-50.0); Mean Corpuscular Hemoglobin 27.9 pg (28.0-32.0); Mean Corpuscular Hgb Conc. 32.6 g/dL (32.0-36.0); Mean Corpuscular Volume 85.7 fL (80.0-100.0); Monocytes # (auto) 0.5 10 ^3/uL (0-1.3); Monocytes % (auto) 5.2 % (0.0-12.0); Neutrophils % (auto) 72.6 % (37.0-80.0); Nucleated Red Blood Cells % 0.1 %; Platelet Count (auto) 390 10^3/uL (140-450); Red Blood Cells 4.38 10^6/uL (4.5-5.90); Red Cell Distribution Width 16.3 % (11.8-14.3); White Blood Cell 9.6 10^3/uL (4.4-10.8)
[2019-08-18 08:02] LABS: BUN/Creatinine Ratio 10.2; Calcium 8.3 mg/dL (8.5-10.1); Potassium 3.6 mmol/L (3.5-5.1)
[2019-08-18 09:00] VITALS: BP 151/84
[2019-08-18] MEDS: cefTRIAXone 1GM/50ML D5W 50 ML IV SCH (09:42)
[2019-08-18] MEDS: PANTOPRAZOLE 40 MG TAB PO SCH (09:43)
[2019-08-18 13:00] VITALS: BP 154/95
[2019-08-18] MEDS ORDERED: MORPHINE SULF INJ 2 MG/ML SYRINGE 1ML IV PRN (13:30)
[2019-08-18] MEDS ORDERED: SUCR1TAB38 OR (15:42)
[2019-08-18] MEDS ORDERED: PANT40TA2 PO (15:42)
[2019-08-18] MEDS ORDERED: METR500T PO (15:43)
[2019-08-18 17:00] VITALS: BP 161/85
== END 2019-08-18 19:18 | disposition home or self-care (01) | DRG 720 ==
LOC: EDUNIT# 18:43 → ER 18:48 → TELE 18:49 → TELE-EAST 08-15 16:02
PROVIDERS: ADMIT Hospitalist; ATTEND Internal Medicine Nephrology
DX: A41.9 Sepsis, unspecified organism (principal); E66.01 Morbid (severe) obesity due to excess calories; F17.210 Nicotine dependence, cigarettes, uncomplicated; F41.9 Anxiety disorder, unspecified; F31.9 Bipolar disorder, unspecified; Z87.442 Personal history of urinary calculi; Z82.49 Family history of ischemic heart disease and other diseases of the circulatory system; Z90.49 Acquired absence of other specified parts of digestive tract; M87.9 Osteonecrosis, unspecified; Z68.34 Body mass index [BMI] 34.0-34.9, adult
CPT/HCPCS: 36415; 70450; 71045; 72125; 74176; 80048; 80053; 80061; 80307; 80320; 81001; 82962; 83605; 85025; 87040; 87045; 87081; 87427; 96361; 96365; 96372; 96375; 96376; G0378; J0696; J2405; J3490

== ENCOUNTER 2019-08-29 12:27 | Emergency (ER) | payer MEDICAID ==
[~2019-08-29] VITALS: Ht 177.8 cm; Wt 119.3 kg
[~2019-08-29 12:27] MED LIST changes: +METR500T PO; +PANT40TA2 PO; +SUCR1TAB22 OR
[2019-08-29 12:35] VITALS: BP 180/106
[2019-12-14] MEDS ORDERED: SUCR1TAB22 PO (12:01)
[2019-12-14] MEDS ORDERED: PANT40TA2 PO (12:01)
[2019-12-14] MEDS ORDERED: ATOR20TA PO (12:07)
== END 2019-08-29 15:11 | disposition home or self-care (01) ==
LOC: ER 12:27
DX: S61.412A Laceration without foreign body of left hand, initial encounter (principal); F17.210 Nicotine dependence, cigarettes, uncomplicated; Z88.8 Allergy status to other drugs, medicaments and biological substances; W54.0XXA Bitten by dog, initial encounter; Y93.89 Activity, other specified; Y92.89 Other specified places as the place of occurrence of the external cause; Y99.8 Other external cause status
CPT/HCPCS: 12001

== ENCOUNTER 2019-10-06 17:51 | Emergency (ER) | payer MEDICAID ==
[~2019-10-06] VITALS: Ht 177.8 cm; Wt 104.3 kg
[~2019-10-06 17:51] MED LIST changes: -SUCR1TAB22 OR; +SUCR1TAB38 OR
[2019-10-06 18:22] VITALS: BP 162/88
[2019-10-06] MEDS ORDERED: ONDANSETRON HCL 4 MG/2 ML VIAL IV ONE (19:00)
[2019-10-06] MEDS ORDERED: SODIUM CHLORIDE 0.9% 1,000 ML IV ONE ×2 (19:00→22:00)
[2019-10-06 20:00] LABS: Basophils # (auto) 0.1 10 ^3/uL (0-0.2); Basophils % (auto) 0.8 % (0.0-2.0); Eosinophils # (auto) 0.1 10 ^3/uL (0-0.8); Eosinophils % (auto) 1.2 % (0.0-7.0); Hematocrit 41.3 % (41.0-53.0); Hemoglobin 13.8 g/dL (13.5-17.5); Lymphocytes # (auto) 1.6 10 ^3/uL (0.4-5.4); Mean Corpuscular Hemoglobin 28.2 pg (28.0-32.0); Mean Corpuscular Hgb Conc. 33.4 g/dL (32.0-36.0); Mean Corpuscular Volume 84.3 fL (80.0-100.0); Monocytes # (auto) 0.5 10 ^3/uL (0-1.3); Monocytes % (auto) 5.4 % (0.0-12.0); Neutrophils # (auto) 7.7 10 ^3/uL (1.6-8.6); Neutrophils % (auto) 76.6 % (37.0-80.0); Nucleated Red Blood Cells % 0.1 %; Platelet Count (auto) 299 10^3/uL (140-450); Red Cell Distribution Width 15.6 % (11.8-14.3)
[2019-10-06 20:05] LABS: Albumin 3.6 g/dL (3.4-5.0); Anion Gap 2 (5-15); Blood Urea Nitrogen 14 mg/dL (7-18); Calcium 9.1 mg/dL (8.5-10.1); Carbon Dioxide 32 mmol/L (21-32); Chloride 104 mmol/L (98-107); Glucose 97 mg/dL (74-106); Potassium 3.3 mmol/L (3.5-5.1); Sodium 138 mmol/L (136-145)
[2019-10-06 20:07] LABS: Alanine Aminotransferase 21 U/L (16-61); Aspartate Aminotransferase 13 U/L (15-37); BUN/Creatinine Ratio 13.7; GFR African American 102 mL/min; GFR Non-African American 84 mL/min
[2019-10-06 20:14] LABS: Alkaline Phosphatase 127 U/L (45-117); Bilirubin, Total 0.2 mg/dL (0.2-1.0); Blood Alcohol < 3.0 mg/dL (0-5); Total Protein 7.8 g/dL (6.4-8.2)
[2019-10-06 21:17] LABS: Lactic Acid w/Reflex 2.9 mmol/L (0.4-2.0)
[2019-10-07] MEDS ORDERED: PIPERACILLIN-TAZOB 3.375GM 100 ML IV ONE
== END 2019-10-07 03:36 | disposition home or self-care (01) ==
LOC: EDBD 17:51 → ER 18:04
DX: A41.9 Sepsis, unspecified organism (principal); R11.2 Nausea with vomiting, unspecified; R41.82 Altered mental status, unspecified; F20.9 Schizophrenia, unspecified; F17.210 Nicotine dependence, cigarettes, uncomplicated; Z87.442 Personal history of urinary calculi; Z88.6 Allergy status to analgesic agent; Z88.8 Allergy status to other drugs, medicaments and biological substances
CPT/HCPCS: 36415; 70450; 74176; 80053; 80320; 83605; 84484; 85025; 87040; 96374; 99285; J2405

== ENCOUNTER 2019-12-11 15:58 | Inpatient (IN) | payer MEDICAID ==
[~2019-12-11] VITALS: Ht 190.5 cm; Wt 120.0 kg
[~2019-12-11 15:58] MED LIST changes: +SUCR1TAB22 OR; -SUCR1TAB38 OR
[2019-12-11] MEDS ORDERED: SODIUM CHLORIDE 0.9% 1,000 ML IVB ONE (17:28)
[2019-12-11 17:47] LABS: Basophils # (auto) 0 10 ^3/uL (0-0.2); Basophils % (auto) 0.2 % (0.0-2.0); Eosinophils # (auto) 0 10 ^3/uL (0-0.8); Hematocrit 44.6 % (41.0-53.0); Hemoglobin 14.1 g/dL (13.5-17.5); Lymphocytes # (auto) 1.3 10 ^3/uL (0.4-5.4); Lymphocytes % (auto) 5.2 % (10.0-50.0); Mean Corpuscular Hgb Conc. 31.7 g/dL (32.0-36.0); Mean Corpuscular Volume 85.3 fL (80.0-100.0); Monocytes # (auto) 0.9 10 ^3/uL (0-1.3); Monocytes % (auto) 3.6 % (0.0-12.0); Neutrophils # (auto) 22.3 10 ^3/uL (1.6-8.6); Nucleated Red Blood Cells % 0.1 %; Platelet Count (auto) 450 10^3/uL (140-450); Red Blood Cells 5.23 10^6/uL (4.5-5.90); White Blood Cell 24.5 10^3/uL (4.4-10.8)
[2019-12-11 18:01] LABS: Alanine Aminotransferase 24 U/L (16-61); Albumin 3.7 g/dL (3.4-5.0); Anion Gap 8 (5-15); Aspartate Aminotransferase 13 U/L (15-37); BUN/Creatinine Ratio 17.4; Blood Alcohol < 3.0 mg/dL (0-5); Blood Urea Nitrogen 21 mg/dL (7-18); Calcium 9.3 mg/dL (8.5-10.1); Carbon Dioxide 27 mmol/L (21-32); Chloride 106 mmol/L (98-107); GFR African American 83 mL/min; GFR Non-African American 69 mL/min; Glucose 123 mg/dL (74-106); Potassium 3.3 mmol/L (3.5-5.1); Sodium 141 mmol/L (136-145)
[2019-12-11 18:06] LABS: Alkaline Phosphatase 123 U/L (45-117); Bilirubin, Total 0.4 mg/dL (0.2-1.0); Lactic Acid w/Reflex 3.9 mmol/L (0.4-2.0); Total Protein 8.4 g/dL (6.4-8.2)
[2019-12-11 18:31] LABS: Magnesium 2.1 mg/dL (1.6-2.6)
[2019-12-11 19:09] LABS: Urine Bacteria NONE SEEN /hpf (None Seen); Urine Blood Negative /uL (Negative); Urine Mucus FEW (None Seen); Urine Specific Gravity 1.028 (1.001-1.035); Urine WBC 2 /hpf (0 - 3)
[2019-12-11 19:42] LABS: Alcohol, Urine < 3.0 mg/dL (0-10); Amphetamine Screen, Urine NEGATIVE (NEGATIVE); Barbiturate Scree,Urine NEGATIVE (NEGATIVE); Benzodiazephine Screen, Urine POSITIVE (NEGATIVE); Cannabinoid Screen, Urine NEGATIVE (NEGATIVE); Cocaine Screen, Urine NEGATIVE (NEGATIVE); Opiate Scree,Urine NEGATIVE (NEGATIVE); Phencyclidine Screen, Urine NEGATIVE (NEGATIVE)
[2019-12-11] MEDS ORDERED: PIPERACILLIN-TAZOB 3.375GM 100 ML IV ONE (20:30)
[2019-12-11] MEDS ORDERED: SODIUM CHLORIDE 0.9% 1,000 ML IV ONE (20:30)
[2019-12-11] MEDS ORDERED: POTASSIUM CHL 20MEQ/100ML 100 ML IV ONE (20:30)
[2019-12-11] MEDS ORDERED: VANCOMYCIN 1GM/250ML 250 ML IV ONE (20:30)
[2019-12-11] MEDS: SODIUM CHLORIDE 0.9% 1,000 ML IV SCH (20:48)
[2019-12-11] MEDS ORDERED: TEMAZEPAM 15 MG CAP PO PRN (21:00)
[2019-12-11] MEDS ORDERED: ACETAMINOPHEN 325 MG TAB PO PRN (21:00)
[2019-12-11] MEDS ORDERED: LORazepam 0.5 MG TAB PO PRN (21:00)
[2019-12-11] MEDS: ONDANSETRON HCL 4 MG/2 ML VIAL IV PRN (22:25)
[2019-12-11] MEDS: SUCRALFATE 1 GM TAB PO SCH (22:25)
[2019-12-11] MEDS: metroNIDAZOLE 500MG/100ML 100 ML IV SCH (22:34)
[2019-12-11 22:49] VITALS: BP 157/95
[2019-12-11 22:56] VITALS: BP 147/93
[2019-12-11] MEDS: VANCOMYCIN HCL 125MG/5ML ORAL SOL GT SCH (23:42)
[2019-12-12] MEDS: NALTREXONE HCL 50 MG PO SCH ×2 (04:46→22:00)
[2019-12-12 05:00] VITALS: BP 147/93
[2019-12-12] MEDS: VANCOMYCIN HCL 125MG/5ML ORAL SOL GT SCH ×4 (05:30→22:47)
[2019-12-12] MEDS: metroNIDAZOLE 500MG/100ML 100 ML IV SCH ×3 (05:30→22:48)
[2019-12-12 06:30] LABS: Basophils # (auto) 0.1 10 ^3/uL (0-0.2); Basophils % (auto) 0.3 % (0.0-2.0); Eosinophils # (auto) 0 10 ^3/uL (0-0.8); Hematocrit 40.7 % (41.0-53.0); Hemoglobin 13.2 g/dL (13.5-17.5); Lymphocytes # (auto) 1.8 10 ^3/uL (0.4-5.4); Lymphocytes % (auto) 8.2 % (10.0-50.0); Mean Corpuscular Hemoglobin 27.5 pg (28.0-32.0); Mean Corpuscular Hgb Conc. 32.5 g/dL (32.0-36.0); Mean Corpuscular Volume 84.6 fL (80.0-100.0); Monocytes # (auto) 1.2 10 ^3/uL (0-1.3); Monocytes % (auto) 5.5 % (0.0-12.0); Neutrophils # (auto) 18.8 10 ^3/uL (1.6-8.6); Nucleated Red Blood Cells % 0.1 %; Platelet Count (auto) 412 10^3/uL (140-450); Red Blood Cells 4.81 10^6/uL (4.5-5.90); Red Cell Distribution Width 18.1 % (11.8-14.3); White Blood Cell 21.8 10^3/uL (4.4-10.8)
[2019-12-12 07:15] LABS: Potassium 3.5 mmol/L (3.5-5.1)
[2019-12-12 07:30] LABS: BUN/Creatinine Ratio 19.4; Calcium 8.3 mg/dL (8.5-10.1)
[2019-12-12] MEDS: ONDANSETRON HCL 4 MG/2 ML VIAL IV PRN (08:26)
[2019-12-12 09:00] VITALS: BP 150/93
[2019-12-12] MEDS: SUCRALFATE 1 GM TAB PO SCH ×2 (10:18→22:48)
[2019-12-12] MEDS: PANTOPRAZOLE 40 MG TAB PO SCH (10:19)
[2019-12-12 12:49] VITALS: BP 149/81
[2019-12-12] MEDS: SODIUM CHLORIDE 0.9% 1,000 ML IV SCH (13:28)
[2019-12-12] MEDS ORDERED: cefTRIAXone 1GM/50ML D5W 50 ML IV ONE (14:45)
[2019-12-12 17:00] VITALS: BP 130/81
[2019-12-12] MEDS ORDERED: PROP60CA34 PO (17:25)
[2019-12-12] MEDS ORDERED: PRA1C PO (17:25)
[2019-12-12] MEDS ORDERED: LURA40TA PO (17:25)
[2019-12-12 20:00] VITALS: BP 157/82
[2019-12-12 22:00] VITALS: BP 157/90
[2019-12-12] MEDS ORDERED: cloNIDine HCL 0.1 MG TAB PO ONE (22:45)
[2019-12-13 05:00] VITALS: BP 123/78
[2019-12-13] MEDS: metroNIDAZOLE 500MG/100ML 100 ML IV SCH (05:30)
[2019-12-13] MEDS: SODIUM CHLORIDE 0.9% 1,000 ML IV SCH ×3 (05:30→22:33)
[2019-12-13] MEDS: VANCOMYCIN HCL 125MG/5ML ORAL SOL GT SCH ×4 (05:30→21:27)
[2019-12-13] MEDS: HYDROcodone-ACET 5/325MG TAB PO PRN ×4 (05:36→21:26)
[2019-12-13 06:42] LABS: Basophils # (auto) 0.1 10 ^3/uL (0-0.2); Basophils % (auto) 0.8 % (0.0-2.0); Eosinophils # (auto) 0.1 10 ^3/uL (0-0.8); Eosinophils % (auto) 1.2 % (0.0-7.0); Hematocrit 35.7 % (41.0-53.0); Hemoglobin 11.5 g/dL (13.5-17.5); Lymphocytes # (auto) 2.3 10 ^3/uL (0.4-5.4); Lymphocytes % (auto) 18.8 % (10.0-50.0); Mean Corpuscular Hemoglobin 27.5 pg (28.0-32.0); Mean Corpuscular Hgb Conc. 32.2 g/dL (32.0-36.0); Mean Corpuscular Volume 85.6 fL (80.0-100.0); Monocytes # (auto) 0.7 10 ^3/uL (0-1.3); Monocytes % (auto) 5.6 % (0.0-12.0); Neutrophils % (auto) 73.6 % (37.0-80.0); Platelet Count (auto) 314 10^3/uL (140-450); Red Blood Cells 4.17 10^6/uL (4.5-5.90); Red Cell Distribution Width 17.6 % (11.8-14.3); White Blood Cell 12.3 10^3/uL (4.4-10.8)
[2019-12-13 07:06] LABS: Potassium 3.6 mmol/L (3.5-5.1)
[2019-12-13 07:10] LABS: Calcium 8.1 mg/dL (8.5-10.1); Magnesium 2.4 mg/dL (1.6-2.6)
[2019-12-13 09:00] VITALS: BP 128/76
[2019-12-13] MEDS: cefTRIAXone 1GM/50ML D5W 50 ML IV SCH (09:42)
[2019-12-13] MEDS: PANTOPRAZOLE 40 MG TAB PO SCH ×2 (09:43→21:25)
[2019-12-13] MEDS: SUCRALFATE 1 GM TAB PO SCH ×2 (09:43→21:25)
[2019-12-13] MEDS ORDERED: IOHEXOL 350 MG/ML 100ML IJ ONE (11:28)
[2019-12-13] MEDS ORDERED: GOLYTELY 4L KIT PO ONE (11:30)
[2019-12-13 13:00] VITALS: BP 130/83
[2019-12-13 14:19] LABS: INR 1.03 (0.9-1.15)
[2019-12-13 17:00] VITALS: BP 159/107
[2019-12-13 21:00] VITALS: BP 154/80
[2019-12-13] MEDS: NALTREXONE HCL 50 MG PO SCH (22:00)
[2019-12-14] MEDS: HYDROcodone-ACET 5/325MG TAB PO PRN ×2 (05:20→12:16)
[2019-12-14 05:49] VITALS: BP 129/86
[2019-12-14] MEDS: VANCOMYCIN HCL 125MG/5ML ORAL SOL GT SCH ×3 (06:00→17:08)
[2019-12-14] MEDS ORDERED: GOLYTELY 4L KIT PO ONE (06:00)
[2019-12-14 07:04] LABS: Basophils # (auto) 0.2 10 ^3/uL (0-0.2); Eosinophils # (auto) 0.3 10 ^3/uL (0-0.8); Eosinophils % (auto) 2.3 % (0.0-7.0); Hemoglobin 11.9 g/dL (13.5-17.5); Lymphocytes # (auto) 2.3 10 ^3/uL (0.4-5.4); Lymphocytes % (auto) 20.8 % (10.0-50.0); Mean Corpuscular Hemoglobin 28.2 pg (28.0-32.0); Mean Corpuscular Hgb Conc. 32.1 g/dL (32.0-36.0); Mean Corpuscular Volume 87.9 fL (80.0-100.0); Monocytes # (auto) 0.5 10 ^3/uL (0-1.3); Monocytes % (auto) 4.9 % (0.0-12.0); Neutrophils # (auto) 7.6 10 ^3/uL (1.6-8.6); Platelet Count (auto) 336 10^3/uL (140-450); Red Blood Cells 4.21 10^6/uL (4.5-5.90); Red Cell Distribution Width 17.4 % (11.8-14.3); White Blood Cell 10.8 10^3/uL (4.4-10.8)
[2019-12-14 07:13] LABS: Potassium 3.5 mmol/L (3.5-5.1)
[2019-12-14 07:15] LABS: BUN/Creatinine Ratio 13.9; Calcium 8.5 mg/dL (8.5-10.1)
[2019-12-14 09:00] VITALS: BP 144/89
[2019-12-14] MEDS: SUCRALFATE 1 GM TAB PO SCH ×3 (09:32→17:08)
[2019-12-14] MEDS: PANTOPRAZOLE 40 MG TAB PO SCH (09:32)
[2019-12-14] MEDS: cefTRIAXone 1GM/50ML D5W 50 ML IV SCH (09:38)
[2019-12-14] MEDS ORDERED: fentaNYL CITRATE 100 MCG/2 ML VL ONE (10:35)
[2019-12-14] MEDS ORDERED: MIDAZOLAM HCL 1MG/1ML-2 ML VIAL ONE (10:35)
[2019-12-14] MEDS ORDERED: PROPOFOL 10 MG/ML 20 ML IV ONE (10:37)
[2019-12-14] MEDS ORDERED: MANNITOL FTV 25% 12.5 GM/50 ML 50 ML IV ONE (11:00)
[2019-12-14] MEDS ORDERED: fentaNYL CITRATE 100 MCG/2 ML VL IV PRN (11:00)
[2019-12-14] MEDS ORDERED: ePHEDrine SULFATE 50 MG/ML AMP IV PRN (11:00)
[2019-12-14] MEDS ORDERED: ONDANSETRON HCL 4 MG/2 ML VIAL IV PRN (11:00)
[2019-12-14] MEDS ORDERED: SODIUM CHLORIDE 0.9% 1,000 ML IV ONE (11:00)
[2019-12-14] MEDS ORDERED: hydrALAZINE HCL 20 MG/ML VL IV PRN (11:00)
[2019-12-14 11:22] VITALS: BP 142/99
[2019-12-14] MEDS ORDERED: PANT40TA2 PO (12:01)
[2019-12-14] MEDS ORDERED: SUCR1TAB22 PO (12:01)
[2019-12-14] MEDS ORDERED: ATOR20TA PO (12:07)
[2019-12-14 13:00] VITALS: BP 146/74
[2019-12-14 15:57] VITALS: BP 131/74
[2019-12-14 17:00] VITALS: BP 154/85
== END 2019-12-14 19:30 | disposition home health service (06) | DRG 241 ==
LOC: EDBD 15:58 → ER 15:58 → OVERFLOW 15:59 → EAST 22:15 → CENTRAL 12-12 21:07
PROVIDERS: ADMIT Hospitalist; ATTEND Internal Medicine
PROC: 0DB68ZX Excision of Stomach, Via Natural or Artificial Opening Endoscopic, Diagnostic (ICD-10-PCS; principal; 2019-12-14 09:30)
DX: K29.70 Gastritis, unspecified, without bleeding (principal); G93.41 Metabolic encephalopathy; R65.10 Systemic inflammatory response syndrome (SIRS) of non-infectious origin without acute organ dysfunction; E66.01 Morbid (severe) obesity due to excess calories; Z20.828 Contact with and (suspected) exposure to other viral communicable diseases; N20.2 Calculus of kidney with calculus of ureter; K52.9 Noninfective gastroenteritis and colitis, unspecified; I10 Essential (primary) hypertension; F31.9 Bipolar disorder, unspecified; E78.5 Hyperlipidemia, unspecified; F17.210 Nicotine dependence, cigarettes, uncomplicated; F41.9 Anxiety disorder, unspecified; K21.0 Gastro-esophageal reflux disease with esophagitis; Z79.899 Other long term (current) drug therapy; Z82.49 Family history of ischemic heart disease and other diseases of the circulatory system; Z79.891 Long term (current) use of opiate analgesic; Z87.11 Personal history of peptic ulcer disease; Z87.442 Personal history of urinary calculi; Z90.49 Acquired absence of other specified parts of digestive tract; Z88.8 Allergy status to other drugs, medicaments and biological substances; Z68.33 Body mass index [BMI] 33.0-33.9, adult
CPT/HCPCS: 36415; 70450; 71045; 71260; 74176; 74177; 76775; 80048; 80053; 80061; 80307; 80320; 81001; 82784; 83516; 83605; 83690; 83735; 83880; 84443; 84484; 85025; 85610; 86255; 87040; 87045; 87086; 87426; 87427; 87493; 93005; G0378; J0696; J2250; J2405; J2543; J2704; J3480; J3490

== ENCOUNTER 2020-01-29 10:14 | Inpatient (IN) | payer MEDICAID ==
[~2020-01-29] VITALS: Ht 177.8 cm; Wt 127.2 kg
[~2020-01-29 10:14] MED LIST changes: +ATOR20TA PO; +LURA40TA PO; +PRA1C PO; +PROP60CA34 PO; -SUCR1TAB22 OR; +SUCR1TAB22 PO
[2020-01-29 11:08] LABS: Basophils # (auto) 0.1 10 ^3/uL (0-0.2); Basophils % (auto) 0.3 % (0.0-2.0); Eosinophils # (auto) 0 10 ^3/uL (0-0.8); Hematocrit 42.3 % (41.0-53.0); Hemoglobin 13.9 g/dL (13.5-17.5); Lymphocytes # (auto) 0.7 10 ^3/uL (0.4-5.4); Lymphocytes % (auto) 3.5 % (10.0-50.0); Mean Corpuscular Hemoglobin 28.1 pg (28.0-32.0); Mean Corpuscular Hgb Conc. 32.8 g/dL (32.0-36.0); Mean Corpuscular Volume 85.5 fL (80.0-100.0); Monocytes # (auto) 0.7 10 ^3/uL (0-1.3); Monocytes % (auto) 3.7 % (0.0-12.0); Neutrophils # (auto) 18.2 10 ^3/uL (1.6-8.6); Neutrophils % (auto) 92.5 % (37.0-80.0); Platelet Count (auto) 385 10^3/uL (140-450); Red Blood Cells 4.94 10^6/uL (4.5-5.90); Red Cell Distribution Width 16.9 % (11.8-14.3); White Blood Cell 19.7 10^3/uL (4.4-10.8)
[2020-01-29 11:26] LABS: INR 1.03 (0.9-1.15); Partial Thromboplastin Time 27.9 sec (23.0-31.2)
[2020-01-29 11:39] LABS: Albumin 3.5 g/dL (3.4-5.0); Calcium 9.4 mg/dL (8.5-10.1); Potassium 4.5 mmol/L (3.5-5.1)
[2020-01-29 11:42] LABS: BUN/Creatinine Ratio 19.6; Bilirubin, Total 0.4 mg/dL (0.2-1.0); Total Protein 7.6 g/dL (6.4-8.2)
[2020-01-29] MEDS ORDERED: SODIUM CHLORIDE 0.9% 1,000 ML IVB ONE (11:45)
[2020-01-29] MEDS ORDERED: PANTOPRAZOLE 40 MG/10 ML VIAL INJ IV ONE (11:45)
[2020-01-29] MEDS ORDERED: metroNIDAZOLE 500MG/100ML 100 ML IV ONE (11:45)
[2020-01-29] MEDS ORDERED: cefTRIAXone 1GM/50ML D5W 50 ML IV ONE (11:45)
[2020-01-29 15:52] LABS: INR 1.03 (0.9-1.15); Partial Thromboplastin Time 28.7 sec (23.0-31.2)
[2020-01-29] MEDS ORDERED: MORPHINE SULF INJ 2 MG/ML SYRINGE 1ML IV PRN (16:00)
[2020-01-29] MEDS ORDERED: NITROGLYCERIN 0.4 MG SL TAB SL PRN (16:00)
[2020-01-29] MEDS: SODIUM CHLORIDE 0.9% 1,000 ML IV SCH (16:27)
[2020-01-29] MEDS: MORPHINE SULF INJ 2 MG/ML SYRINGE 1ML IV PRN ×2 (16:39→20:58)
[2020-01-29 19:32] VITALS: BP 136/92
--- NOTE | 2020-01-29 19:32 | NUR ---
Telemetry admit from [facility] admitted to Telemetry unit. Patient oriented to ARELIS HALLMAN RN primary RN, unit, room, bed, and unit policies regarding patient care and visiting hours. Patient now on continuous telemetry monitoring, tele box # 62 and telemetry reading on arrival to unit is 100. Patient placed on bedside oxygen, weighed by bedscale and encouraged to call if they need something. Safety measures in place call light with in reach, side raills up x2 and bed in lowest position. All questions and concerns addressed, patient verbalized understanding.
--- NOTE | 2020-01-29 21:34 | NUR ---
BELONGINGS FORM COMPLETE AND FILED IN HARD CHART
[2020-01-29 22:00] VITALS: BP 132/92
[2020-01-29] MEDS: metroNIDAZOLE 500MG/100ML 100 ML IV SCH (22:28)
[2020-01-29] MEDS: QUEtiapine FUMARATE 25 MG TAB PO SCH (22:28)
[2020-01-29] MEDS: LORazepam 2MG/ML-1ML VIAL IV PRN (23:23)
[2020-01-30] MEDS: SODIUM CHLORIDE 0.9% 1,000 ML IV SCH ×4 (03:05→17:21)
[2020-01-30] MEDS: MORPHINE SULF INJ 2 MG/ML SYRINGE 1ML IV PRN ×4 (03:09→20:02)
[2020-01-30] MEDS: metroNIDAZOLE 500MG/100ML 100 ML IV SCH ×3 (05:22→21:27)
[2020-01-30 05:59] VITALS: BP 149/85
--- NOTE | 2020-01-30 07:33 | NUR ---
Endorsed care to day shift RN [place], safety measures in place call light with in reach bed in lowest position siderails up x2.
[2020-01-30] MEDS: cefTRIAXone 1GM/50ML D5W 50 ML IV SCH (08:06)
[2020-01-30 08:07] VITALS: BP 153/89
--- NOTE | 2020-01-30 08:07 | NUR ---
Patient medicated for 9/10 abdominal pain. Scheduled IV abx given as well. Patient stable at this time.
[2020-01-30 08:31] LABS: Basophils # (auto) 0.1 10 ^3/uL (0-0.2); Basophils % (auto) 0.5 % (0.0-2.0); Eosinophils # (auto) 0.1 10 ^3/uL (0-0.8); Eosinophils % (auto) 0.5 % (0.0-7.0); Hematocrit 40.5 % (41.0-53.0); Lymphocytes # (auto) 1.2 10 ^3/uL (0.4-5.4); Lymphocytes % (auto) 9.4 % (10.0-50.0); Mean Corpuscular Hemoglobin 27.9 pg (28.0-32.0); Mean Corpuscular Hgb Conc. 32.2 g/dL (32.0-36.0); Mean Corpuscular Volume 86.7 fL (80.0-100.0); Monocytes # (auto) 0.9 10 ^3/uL (0-1.3); Monocytes % (auto) 6.8 % (0.0-12.0); Neutrophils # (auto) 10.7 10 ^3/uL (1.6-8.6); Neutrophils % (auto) 82.8 % (37.0-80.0); Platelet Count (auto) 348 10^3/uL (140-450); Red Blood Cells 4.67 10^6/uL (4.5-5.90); Red Cell Distribution Width 16.9 % (11.8-14.3); White Blood Cell 12.9 10^3/uL (4.4-10.8)
[2020-01-30 08:55] LABS: BUN/Creatinine Ratio 19.2; Calcium 8.4 mg/dL (8.5-10.1); Potassium 4.3 mmol/L (3.5-5.1)
[2020-01-30 09:00] VITALS: BP 153/84
[2020-01-30] MEDS: PANTOPRAZOLE 40 MG/10 ML VIAL INJ IV SCH (09:48)
[2020-01-30] MEDS: QUEtiapine FUMARATE 25 MG TAB PO SCH ×2 (09:48→21:27)
--- NOTE | 2020-01-30 09:49 | NUR ---
Patient ambulated to bathroom and back to bed with walker. Scheduled medications given per order. Patient sitting on side of bed with no distress noted. Patient stable.
[2020-01-30] MEDS ORDERED: INFLUENZA QUAD 2020-2021 0.5 ML SYRG IM ONE (10:00)
--- NOTE | 2020-01-30 12:00 | NUR ---
Patient resting in bed with eyes closed. Patient stable.
[2020-01-30 13:00] VITALS: BP 145/87
--- NOTE | 2020-01-30 13:35 | NUR ---
Scheduled IV abx given per order. Patient stable with Dr. Escobar at bedside.
[2020-01-30] MEDS ORDERED: PROMETHAZINE HCL 25 MG/ML 1ML IV PRN (14:15)
--- NOTE | 2020-01-30 14:38 | NUR ---
Patient medicated for 9/10 abdominal pain. Patient stable at this time.
--- NOTE | 2020-01-30 16:15 | NUR ---
Patient ambulated to bathroom and back to chair at bedside. Patient stable at this time.
[2020-01-30 16:47] VITALS: BP 140/91
[2020-01-30 17:03] LABS: Urine Bacteria NONE SEEN /hpf (None Seen); Urine Blood Negative /uL (Negative); Urine Mucus FEW (None Seen); Urine Specific Gravity 1.025 (1.001-1.035); Urine WBC 1 /hpf (0 - 3)
--- NOTE | 2020-01-30 17:22 | NUR ---
Started new IVF bag. Patient resting quietly in bed with no complaint of pain. Patient stable.
--- NOTE | 2020-01-30 19:20 | NUR ---
Opening Shift Note Assumed care of patient, awake and alert x4. No S/S of distress/SOB. Bed in low locked position, call light within reach , safety precaution observed. siderails up x2. non skid socks on. reviewed chart and medications for tonight.for pain medication and antibiotic therapy. Intsructed on POC and to call for assist PRN, will continue to monitor for changes Q1hr and PRN.
--- NOTE | 2020-01-30 20:02 | NUR ---
Patient requested and gave pain medication for pain score of 9/10 on abdomen. will continue to educate and monitor patient. safety fall precaution observed.
[2020-01-30 22:00] VITALS: BP 151/93
[2020-01-30] MEDS: LORazepam 2MG/ML-1ML VIAL IV PRN (22:30)
[2020-01-31] MEDS: MORPHINE SULF INJ 2 MG/ML SYRINGE 1ML IV PRN ×3 (01:50→10:03)
--- NOTE | 2020-01-31 01:50 | NUR ---
Pain medication given for pain score of 8/10 on abdomen. patient tolerated. will continue to educate and monitor.
[2020-01-31] MEDS: SODIUM CHLORIDE 0.9% 1,000 ML IV SCH ×3 (03:11→16:00)
--- NOTE | 2020-01-31 04:08 | NUR ---
Patient went to toilet for bm. patient stated no blood seen. will continue to monitor.
[2020-01-31 05:00] VITALS: BP 145/93
[2020-01-31] MEDS: metroNIDAZOLE 500MG/100ML 100 ML IV SCH ×2 (05:51→13:21)
--- NOTE | 2020-01-31 07:02 | NUR ---
Closing shift report Patient alert and oriented. No SOB and no acute distress seen. Bed in low locked position, call light within reach, siderails up x2, non skid socks on.
[2020-01-31 08:00] VITALS: BP 136/67
[2020-01-31 09:00] VITALS: BP 136/67
[2020-01-31] MEDS: PANTOPRAZOLE 40 MG/10 ML VIAL INJ IV SCH (09:11)
[2020-01-31] MEDS: cefTRIAXone 1GM/50ML D5W 50 ML IV SCH (09:11)
[2020-01-31] MEDS: QUEtiapine FUMARATE 25 MG TAB PO SCH (09:12)
--- NOTE | 2020-01-31 09:12 | NUR ---
Scheduled medications given per order. Patient stable at this time.
--- NOTE | 2020-01-31 10:05 | NUR ---
Patient medicated for 8/10 abdominal pain. Patient resting quietly at this time.
[2020-01-31] MEDS ORDERED: METR500T PO (11:09)
[2020-01-31] MEDS ORDERED: AMOX500T86 PO (11:09)
--- NOTE | 2020-01-31 11:44 | NUR ---
Patient ambulated to bathroom and back to bed. Patient stable.
[2020-01-31 13:00] VITALS: BP 130/77
--- NOTE | 2020-01-31 13:21 | NUR ---
Patient sitting on side of bed with no distress noted. Scheduled IV abx given per order. Patient has a discharge order.
[2020-01-31 13:40] VITALS: BP 136/67
--- NOTE | 2020-01-31 15:50 | NUR ---
Discharge instructions Discharge instructions given as ordered. Encourage to follow up with PMD as instructed and call Dr. Salazar to schedule outpatient colonoscopy. All questions and concerns addressed. Patient verbalized understanding. Medication reconciliation form completed and copy given to patient. Needed vaccines given. IV removed with catheter intact, pressure dressing applied. Telemetry unit returned to ICU. Patient stable at this time.
--- NOTE | 2020-01-31 16:15 | NUR ---
Administered flu vaccine. Patient stable at this time.
--- NOTE | 2020-01-31 16:40 | NUR ---
Discharge Patient discharged to home; taken to vehicle via wheelchair with all personal belongings, accompanied by staff. No distress noted at time of departure.
== END 2020-01-31 16:40 | disposition home or self-care (01) | DRG 249 ==
LOC: ER 10:14 → EDBD 10:14 → OBSVTOIN 10:15 → TELE 10:15 → TELE-WESTW 19:32 → TELE 01-30 13:57 → TELE-WESTW 01-30 13:58
PROVIDERS: ADMIT Nurse Practitioner Acute Care; ATTEND Internal Medicine
DX: K52.9 Noninfective gastroenteritis and colitis, unspecified (principal); R65.10 Systemic inflammatory response syndrome (SIRS) of non-infectious origin without acute organ dysfunction; F31.9 Bipolar disorder, unspecified; I10 Essential (primary) hypertension; F11.90 Opioid use, unspecified, uncomplicated; F17.210 Nicotine dependence, cigarettes, uncomplicated; F41.9 Anxiety disorder, unspecified; Z79.899 Other long term (current) drug therapy; Z82.49 Family history of ischemic heart disease and other diseases of the circulatory system; Z87.442 Personal history of urinary calculi; Z90.49 Acquired absence of other specified parts of digestive tract; Z91.14 Patient's other noncompliance with medication regimen; E66.9 Obesity, unspecified; Z68.37 Body mass index [BMI] 37.0-37.9, adult
CPT/HCPCS: 36415; 71045; 74176; 80048; 80053; 81001; 82150; 82270; 83690; 83735; 85025; 85610; 85730; 87040; 87045; 87427; 87493; 93005; 96365; 96368; 96375; C9113; G0378; J0696; J3490

== ENCOUNTER 2020-06-30 14:19 | Inpatient (IN) | payer MEDICAID ==
[~2020-06-30] VITALS: Ht 177.8 cm; Wt 119.5 kg
[~2020-06-30 14:19] MED LIST changes: +AMOX500T86 PO
[2020-06-30] MEDS ORDERED: SODIUM CHLORIDE 0.9% 1,000 ML IV ONE (18:00)
[2020-06-30] MEDS ORDERED: ONDANSETRON HCL 4 MG/2 ML VIAL IV ONE (18:00)
[2020-06-30] MEDS ORDERED: SODIUM CHLORIDE 0.9% 1,000 ML IVB ONE (18:15)
[2020-06-30 18:19] LABS: Basophils # (auto) 0.1 10 ^3/uL (0-0.2); Basophils % (auto) 0.8 % (0.0-2.0); Eosinophils # (auto) 0 10 ^3/uL (0-0.8); Eosinophils % (auto) 0.2 % (0.0-7.0); Hematocrit 41.1 % (41.0-53.0); Lymphocytes # (auto) 1.2 10 ^3/uL (0.4-5.4); Lymphocytes % (auto) 7.9 % (10.0-50.0); Mean Corpuscular Hemoglobin 29.2 pg (28.0-32.0); Mean Corpuscular Hgb Conc. 34.1 g/dL (32.0-36.0); Mean Corpuscular Volume 85.7 fL (80.0-100.0); Monocytes # (auto) 0.4 10 ^3/uL (0-1.3); Monocytes % (auto) 2.9 % (0.0-12.0); Neutrophils # (auto) 13.2 10 ^3/uL (1.6-8.6); Neutrophils % (auto) 88.2 % (37.0-80.0); Nucleated Red Blood Cells % 0.1 %; Platelet Count (auto) 359 10^3/uL (140-450); Red Blood Cells 4.79 10^6/uL (4.5-5.90); Red Cell Distribution Width 15.7 % (11.8-14.3)
[2020-06-30 18:43] LABS: Albumin 4.6 g/dL (3.4-5.0); Calcium 9.9 mg/dL (8.5-10.1); Potassium 3.1 mmol/L (3.5-5.1)
[2020-06-30 18:45] LABS: INR 0.97 (0.9-1.15); Partial Thromboplastin Time 22.8 sec (23.0-31.2)
[2020-06-30 18:46] LABS: BUN/Creatinine Ratio 17.9; Bilirubin, Total 0.4 mg/dL (0.2-1.0); Total Protein 8.7 g/dL (6.4-8.2)
[2020-06-30] MEDS ORDERED: ONDANSETRON ODT 4 MG TAB PO ONE ×2 (18:55→19:00)
[2020-06-30] MEDS ORDERED: MORPHINE SULFATE 4 MG/ML SYR/VIAL ONE (18:56)
[2020-06-30] MEDS ORDERED: MORPHINE SULFATE 10 MG/ML INJ 1ML SDV IM ONE (19:00)
[2020-06-30 19:17] LABS: Amylase 83 U/L (25-115); Lipase 450 U/L (73-393); Magnesium 2.2 mg/dL (1.6-2.6)
[2020-06-30] MEDS ORDERED: PANTOPRAZOLE 40 MG/10 ML VIAL INJ IV ONE (20:15)
[2020-06-30] MEDS ORDERED: POTASSIUM CHL 20MEQ/100ML 100 ML IV ONE (20:30)
[2020-06-30] MEDS ORDERED: cefTRIAXone 1GM/50ML D5W 50 ML IV ONE (20:30)
[2020-06-30] MEDS ORDERED: MORPHINE SULF INJ 2 MG/ML SYRINGE 1ML IV ONE (20:30)
[2020-06-30 20:53] LABS: Urine Bacteria NONE SEEN /hpf (None Seen); Urine Blood Negative /uL (Negative); Urine Mucus FEW (None Seen); Urine Specific Gravity 1.029 (1.001-1.035); Urine WBC 3 /hpf (0 - 3)
[2020-06-30 21:07] LABS: Alcohol, Urine < 3.0 mg/dL (0-10); Amphetamine Screen, Urine NEGATIVE (NEGATIVE); Barbiturate Scree,Urine NEGATIVE (NEGATIVE); Benzodiazephine Screen, Urine NEGATIVE (NEGATIVE); Cannabinoid Screen, Urine NEGATIVE (NEGATIVE); Cocaine Screen, Urine NEGATIVE (NEGATIVE); Opiate Scree,Urine NEGATIVE (NEGATIVE); Phencyclidine Screen, Urine NEGATIVE (NEGATIVE)
[2020-06-30] MEDS ORDERED: LORazepam 2MG/ML-1ML VIAL IV ONE (21:15)
[2020-06-30] MEDS ORDERED: MORPHINE SULF INJ 2 MG/ML SYRINGE 1ML IV PRN (22:30)
[2020-06-30] MEDS ORDERED: DOCUSATE SOD 100 MG CAP PO PRN (22:30)
[2020-06-30] MEDS ORDERED: ACETAMINOPHEN 325 MG TAB PO PRN (22:30)
[2020-06-30] MEDS ORDERED: TEMAZEPAM 15 MG CAP PO PRN (22:30)
[2020-06-30] MEDS ORDERED: NITROGLYCERIN 0.4 MG SL TAB SL PRN (22:30)
[2020-06-30] MEDS ORDERED: HYDROcodone-ACET 5/325MG TAB PO PRN (22:30)
[2020-06-30] MEDS: SOD CHL 0.45% 1,000 ML IV SCH (22:55)
[2020-07-01 00:12] VITALS: BP 147/86
[2020-07-01] MEDS: MORPHINE SULFATE 4 MG/ML SYR/VIAL IV PRN ×4 (00:50→19:44)
[2020-07-01 01:00] VITALS: BP 147/86
[2020-07-01] MEDS: ONDANSETRON HCL 4 MG/2 ML VIAL IV PRN ×2 (01:13→20:08)
[2020-07-01] MEDS: LORazepam 2MG/ML-1ML VIAL IV PRN ×3 (03:09→21:15)
[2020-07-01 04:55] VITALS: BP 150/77
[2020-07-01 07:33] LABS: Basophils # (auto) 0.1 10 ^3/uL (0-0.2); Basophils % (auto) 0.5 % (0.0-2.0); Eosinophils # (auto) 0 10 ^3/uL (0-0.8); Hematocrit 39.6 % (41.0-53.0); Hemoglobin 13.5 g/dL (13.5-17.5); Lymphocytes % (auto) 5.6 % (10.0-50.0); Mean Corpuscular Hemoglobin 29.3 pg (28.0-32.0); Mean Corpuscular Volume 86.1 fL (80.0-100.0); Monocytes # (auto) 0.5 10 ^3/uL (0-1.3); Monocytes % (auto) 2.7 % (0.0-12.0); Neutrophils # (auto) 15.6 10 ^3/uL (1.6-8.6); Neutrophils % (auto) 91.2 % (37.0-80.0); Platelet Count (auto) 373 10^3/uL (140-450); Red Cell Distribution Width 15.8 % (11.8-14.3); White Blood Cell 17.1 10^3/uL (4.4-10.8)
[2020-07-01 07:52] LABS: Potassium 3.5 mmol/L (3.5-5.1)
[2020-07-01 07:57] LABS: BUN/Creatinine Ratio 18.9; Bilirubin, Total 0.5 mg/dL (0.2-1.0); Calcium 9.1 mg/dL (8.5-10.1); Total Protein 8.2 g/dL (6.4-8.2)
[2020-07-01] MEDS: cefTRIAXone 1GM/50ML D5W 50 ML IV SCH (09:01)
[2020-07-01] MEDS: FOLIC ACID 1 MG TAB PO SCH (09:24)
[2020-07-01] MEDS: ZINC SULFATE 220mg CAP or TAB PO SCH (09:24)
[2020-07-01] MEDS: THIAMINE HCL 100 MG TAB PO SCH (09:24)
[2020-07-01] MEDS: PANTOPRAZOLE 40 MG/10 ML VIAL INJ IV SCH (09:25)
[2020-07-01] MEDS: MULTIPLE VITAMIN TAB PO SCH (09:25)
[2020-07-01] MEDS: ASCORBIC ACID 500 MG TAB PO SCH ×2 (09:25→21:34)
[2020-07-01] MEDS ORDERED: ENOXAPARIN SOD 120 MG/0.8 ML SYRINGE SC SCH (10:00)
[2020-07-01] MEDS: AZITHROMYCIN 500MG/ 250ML 250 ML IV SCH (12:18)
[2020-07-01 18:13] LABS: Hematocrit 42.6 % (41.0-53.0); Hemoglobin 14.3 g/dL (13.5-17.5)
[2020-07-01] MEDS: SOD CHL 0.45% 1,000 ML IV SCH (19:19)
[2020-07-02] MEDS: SOD CHL 0.45% 1,000 ML IV SCH ×2 (01:25→13:29)
[2020-07-02] MEDS: MORPHINE SULFATE 4 MG/ML SYR/VIAL IV PRN ×5 (02:17→20:42)
[2020-07-02] MEDS: LORazepam 2MG/ML-1ML VIAL IV PRN ×3 (03:23→20:30)
[2020-07-02 05:47] LABS: Basophils # (auto) 0.1 10 ^3/uL (0-0.2); Basophils % (auto) 0.5 % (0.0-2.0); Eosinophils # (auto) 0 10 ^3/uL (0-0.8); Eosinophils % (auto) 0.2 % (0.0-7.0); Lymphocytes # (auto) 1.5 10 ^3/uL (0.4-5.4); Lymphocytes % (auto) 11.4 % (10.0-50.0); Mean Corpuscular Hemoglobin 29.4 pg (28.0-32.0); Mean Corpuscular Hgb Conc. 34.1 g/dL (32.0-36.0); Mean Corpuscular Volume 86.1 fL (80.0-100.0); Monocytes # (auto) 0.6 10 ^3/uL (0-1.3); Monocytes % (auto) 4.6 % (0.0-12.0); Neutrophils # (auto) 11.2 10 ^3/uL (1.6-8.6); Neutrophils % (auto) 83.3 % (37.0-80.0); Platelet Count (auto) 319 10^3/uL (140-450); Red Blood Cells 4.41 10^6/uL (4.5-5.90); Red Cell Distribution Width 16.1 % (11.8-14.3); White Blood Cell 13.5 10^3/uL (4.4-10.8)
[2020-07-02 06:06] LABS: Albumin 3.6 g/dL (3.4-5.0); Calcium 8.6 mg/dL (8.5-10.1); Potassium 3.2 mmol/L (3.5-5.1)
[2020-07-02 06:09] LABS: BUN/Creatinine Ratio 21.7; Bilirubin, Total 0.6 mg/dL (0.2-1.0); Total Protein 7.3 g/dL (6.4-8.2)
[2020-07-02] MEDS: FOLIC ACID 1 MG TAB PO SCH (10:00)
[2020-07-02] MEDS: THIAMINE HCL 100 MG TAB PO SCH (10:00)
[2020-07-02] MEDS: ASCORBIC ACID 500 MG TAB PO SCH ×2 (10:00→20:30)
[2020-07-02] MEDS: MULTIPLE VITAMIN TAB PO SCH (10:00)
[2020-07-02] MEDS: ZINC SULFATE 220mg CAP or TAB PO SCH (10:00)
[2020-07-02] MEDS: PANTOPRAZOLE 40 MG/10 ML VIAL INJ IV SCH ×2 (10:51→22:00)
[2020-07-02] MEDS: cefTRIAXone 1GM/50ML D5W 50 ML IV SCH (10:51)
[2020-07-02] MEDS: AZITHROMYCIN 500MG/ 250ML 250 ML IV SCH (10:52)
[2020-07-02] MEDS: ONDANSETRON HCL 4 MG/2 ML VIAL IV PRN ×2 (10:58→15:40)
[2020-07-02] MEDS ORDERED: POTASSIUM CHLORIDE 20 MEQ, LIDOCAINE 1% (LOCAL ANESTH.) 2 ML in SODIUM CHL 0.9% 100 ML IV ONE (13:30)
[2020-07-02] MEDS: SUCRALFATE 1 GM/10 ML ORAL SUSP PO SCH ×2 (17:44→20:29)
[2020-07-02 22:00] VITALS: BP 152/88
[2020-07-03] MEDS: SUCRALFATE 1 GM/10 ML ORAL SUSP PO SCH ×4 (01:57→21:21)
[2020-07-03] MEDS: MORPHINE SULFATE 4 MG/ML SYR/VIAL IV PRN ×3 (03:20→21:28)
[2020-07-03] MEDS: SOD CHL 0.45% 1,000 ML IV SCH ×2 (04:05→16:58)
[2020-07-03] MEDS: LORazepam 2MG/ML-1ML VIAL IV PRN ×2 (04:44→18:25)
[2020-07-03 05:00] VITALS: BP 115/65
[2020-07-03 06:47] LABS: Basophils # (auto) 0.1 10 ^3/uL (0-0.2); Eosinophils # (auto) 0.1 10 ^3/uL (0-0.8); Eosinophils % (auto) 1.5 % (0.0-7.0); Hematocrit 35.9 % (41.0-53.0); Hemoglobin 12.4 g/dL (13.5-17.5); Lymphocytes # (auto) 1.6 10 ^3/uL (0.4-5.4); Lymphocytes % (auto) 18.9 % (10.0-50.0); Mean Corpuscular Hgb Conc. 34.6 g/dL (32.0-36.0); Mean Corpuscular Volume 86.6 fL (80.0-100.0); Monocytes # (auto) 0.4 10 ^3/uL (0-1.3); Monocytes % (auto) 4.8 % (0.0-12.0); Neutrophils # (auto) 6.5 10 ^3/uL (1.6-8.6); Neutrophils % (auto) 73.8 % (37.0-80.0); Nucleated Red Blood Cells % 0.1 %; Platelet Count (auto) 275 10^3/uL (140-450); Red Blood Cells 4.15 10^6/uL (4.5-5.90); Red Cell Distribution Width 15.7 % (11.8-14.3); White Blood Cell 8.7 10^3/uL (4.4-10.8)
[2020-07-03 07:04] LABS: Albumin 3.2 g/dL (3.4-5.0); BUN/Creatinine Ratio 15.3; Calcium 8.3 mg/dL (8.5-10.1); Potassium 3.3 mmol/L (3.5-5.1)
[2020-07-03 07:07] LABS: Bilirubin, Total 0.5 mg/dL (0.2-1.0); Total Protein 6.7 g/dL (6.4-8.2)
[2020-07-03] MEDS ORDERED: LIDOCAINE VISCOUS 2% 15ML UD ONE (08:36)
[2020-07-03] MEDS ORDERED: SODIUM CHLORIDE LOCK 10 ML ONE (08:36)
[2020-07-03] MEDS ORDERED: diphenhdrAMINE HCL 50 MG/1 ML VL ONE (08:37)
[2020-07-03 09:00] VITALS: BP 134/85
[2020-07-03] MEDS: cefTRIAXone 1GM/50ML D5W 50 ML IV SCH (09:03)
[2020-07-03] MEDS: THIAMINE HCL 100 MG TAB PO SCH (10:00)
[2020-07-03] MEDS: AZITHROMYCIN 500MG/ 250ML 250 ML IV SCH (10:00)
[2020-07-03] MEDS: ZINC SULFATE 220mg CAP or TAB PO SCH (10:00)
[2020-07-03] MEDS: FOLIC ACID 1 MG TAB PO SCH (10:00)
[2020-07-03] MEDS: ASCORBIC ACID 500 MG TAB PO SCH ×2 (10:00→21:22)
[2020-07-03] MEDS: MULTIPLE VITAMIN TAB PO SCH (10:00)
[2020-07-03] MEDS: PANTOPRAZOLE 40 MG/10 ML VIAL INJ IV SCH (10:00)
[2020-07-03] MEDS: fentaNYL CITRATE 100 MCG/2 ML VL ONE ×4 (11:00→11:09)
[2020-07-03] MEDS: MIDAZOLAM HCL 5 MG/ML-1ML VIAL ONE ×4 (11:00→11:09)
[2020-07-03 13:00] VITALS: BP 136/78
[2020-07-03] MEDS: METHADONE HCL 10 MG TAB PO SCH (13:55)
[2020-07-03 17:00] VITALS: BP 142/88
[2020-07-03] MEDS: PANTOPRAZOLE 40 MG TAB PO SCH (21:21)
[2020-07-03 22:00] VITALS: BP 148/91
[2020-07-04] MEDS: MORPHINE SULFATE 4 MG/ML SYR/VIAL IV PRN (03:32)
[2020-07-04 05:00] VITALS: BP 139/82
[2020-07-04] MEDS: SOD CHL 0.45% 1,000 ML IV SCH (05:54)
[2020-07-04] MEDS: SUCRALFATE 1 GM/10 ML ORAL SUSP PO SCH ×2 (05:54→11:24)
[2020-07-04 07:11] LABS: Basophils # (auto) 0.1 10 ^3/uL (0-0.2); Basophils % (auto) 1.2 % (0.0-2.0); Eosinophils # (auto) 0.3 10 ^3/uL (0-0.8); Eosinophils % (auto) 4.1 % (0.0-7.0); Hemoglobin 12.1 g/dL (13.5-17.5); Lymphocytes # (auto) 1.7 10 ^3/uL (0.4-5.4); Lymphocytes % (auto) 21.3 % (10.0-50.0); Mean Corpuscular Hemoglobin 29.9 pg (28.0-32.0); Mean Corpuscular Hgb Conc. 34.5 g/dL (32.0-36.0); Mean Corpuscular Volume 86.7 fL (80.0-100.0); Monocytes # (auto) 0.4 10 ^3/uL (0-1.3); Monocytes % (auto) 4.9 % (0.0-12.0); Neutrophils # (auto) 5.4 10 ^3/uL (1.6-8.6); Neutrophils % (auto) 68.5 % (37.0-80.0); Platelet Count (auto) 260 10^3/uL (140-450); Red Blood Cells 4.04 10^6/uL (4.5-5.90); Red Cell Distribution Width 15.8 % (11.8-14.3); White Blood Cell 7.9 10^3/uL (4.4-10.8)
[2020-07-04 07:26] LABS: Potassium 3.4 mmol/L (3.5-5.1)
[2020-07-04 09:00] VITALS: BP 150/101
[2020-07-04] MEDS: cefTRIAXone 1GM/50ML D5W 50 ML IV SCH (09:36)
[2020-07-04] MEDS: FOLIC ACID 1 MG TAB PO SCH (09:36)
[2020-07-04] MEDS: PANTOPRAZOLE 40 MG TAB PO SCH (09:37)
[2020-07-04] MEDS: ZINC SULFATE 220mg CAP or TAB PO SCH (09:37)
[2020-07-04] MEDS: THIAMINE HCL 100 MG TAB PO SCH (09:37)
[2020-07-04] MEDS: METHADONE HCL 10 MG TAB PO SCH (09:37)
[2020-07-04] MEDS: MULTIPLE VITAMIN TAB PO SCH (09:37)
[2020-07-04] MEDS: ASCORBIC ACID 500 MG TAB PO SCH (09:37)
[2020-07-04] MEDS: AZITHROMYCIN 500MG/ 250ML 250 ML IV SCH (10:40)
[2020-07-04] MEDS ORDERED: AMOX500T86 PO (11:14)
== END 2020-07-04 15:30 | disposition home or self-care (01) | DRG 241 ==
LOC: ER 14:19 → EDBD 14:19 → TELE 14:20 → TELE-WESTW 23:25
PROVIDERS: ADMIT Nurse Practitioner Family; ATTEND Internal Medicine Pulmonary Disease
PROC: 0DJ08ZZ Inspection of Upper Intestinal Tract, Via Natural or Artificial Opening Endoscopic (ICD-10-PCS; principal; 2020-07-03 11:11)
DX: K29.71 Gastritis, unspecified, with bleeding (principal); N17.0 Acute kidney failure with tubular necrosis; R65.11 Systemic inflammatory response syndrome (SIRS) of non-infectious origin with acute organ dysfunction; J69.0 Pneumonitis due to inhalation of food and vomit; G92 Toxic encephalopathy; K85.90 Acute pancreatitis without necrosis or infection, unspecified; E87.6 Hypokalemia; K20.91 Esophagitis, unspecified with bleeding; N18.9 Chronic kidney disease, unspecified; Z20.822 Contact with and (suspected) exposure to COVID-19; F17.210 Nicotine dependence, cigarettes, uncomplicated; F31.9 Bipolar disorder, unspecified; F41.9 Anxiety disorder, unspecified; I12.9 Hypertensive chronic kidney disease with stage 1 through stage 4 chronic kidney disease, or unspecified chronic kidney disease; N40.0 Benign prostatic hyperplasia without lower urinary tract symptoms; Z88.8 Allergy status to other drugs, medicaments and biological substances; Z82.49 Family history of ischemic heart disease and other diseases of the circulatory system; Z87.442 Personal history of urinary calculi; Z90.49 Acquired absence of other specified parts of digestive tract
CPT/HCPCS: 36415; 43235; 71045; 74176; 80048; 80053; 80307; 81001; 82150; 82270; 83036; 83690; 83735; 84443; 84484; 85014; 85018; 85025; 85610; 85730; 87045; 87426; 87427; 87493; 96361; 96365; 96368; 96372; 96375; C9113; G0378; J0696; J2001; J2250; J2405; J3480; Q0162

== ENCOUNTER 2020-12-15 19:40 | Emergency (ER) | payer MEDICAID ==
[~2020-12-15] VITALS: Ht 177.8 cm; Wt 136.1 kg
[2020-12-15 23:15] VITALS: BP 136/89
[2020-12-15 23:16] LABS: Basophils # (auto) 0.1 10 ^3/uL (0-0.2); Basophils % (auto) 0.9 % (0.0-2.0); Eosinophils # (auto) 0.2 10 ^3/uL (0-0.8); Eosinophils % (auto) 1.5 % (0.0-7.0); Hematocrit 40.5 % (41.0-53.0); Hemoglobin 13.6 g/dL (13.5-17.5); Lymphocytes % (auto) 18.9 % (10.0-50.0); Mean Corpuscular Hemoglobin 29.6 pg (28.0-32.0); Mean Corpuscular Hgb Conc. 33.5 g/dL (32.0-36.0); Mean Corpuscular Volume 88.2 fL (80.0-100.0); Monocytes # (auto) 0.4 10 ^3/uL (0-1.3); Monocytes % (auto) 3.8 % (0.0-12.0); Neutrophils # (auto) 7.9 10 ^3/uL (1.6-8.6); Neutrophils % (auto) 74.9 % (37.0-80.0); Red Blood Cells 4.59 10^6/uL (4.5-5.90); Red Cell Distribution Width 16.2 % (11.8-14.3); White Blood Cell 10.5 10^3/uL (4.4-10.8)
[2020-12-15 23:29] LABS: Potassium 4.1 mmol/L (3.5-5.1)
[2020-12-15 23:30] LABS: Salicylate 2.4 mg/dL (2.8-20.0)
[2020-12-15 23:32] LABS: Acetaminophen < 2.0 ug/mL (10-30)
[2020-12-15 23:40] LABS: Bilirubin, Total 0.3 mg/dL (0.2-1.0); Calcium 9.1 mg/dL (8.5-10.1); Magnesium 2.3 mg/dL (1.6-2.6); Total Protein 8.2 g/dL (6.4-8.2)
== END 2020-12-15 23:15 ==
LOC: EDBD 19:40 → ER 19:45
DX: T14.91XA Suicide attempt, initial encounter (principal); T25.021A Burn of unspecified degree of right foot, initial encounter; F32.9 Major depressive disorder, single episode, unspecified; F41.9 Anxiety disorder, unspecified; I10 Essential (primary) hypertension; F17.210 Nicotine dependence, cigarettes, uncomplicated; Z87.442 Personal history of urinary calculi; Z90.49 Acquired absence of other specified parts of digestive tract; X08.8XXA Exposure to other specified smoke, fire and flames, initial encounter; Y93.89 Activity, other specified; Y92.89 Other specified places as the place of occurrence of the external cause; Y99.8 Other external cause status
CPT/HCPCS: 36415; 80053; 80320; 80329; 83735; 85025